=== PATIENT | male | born 1960 | race Caucasian/White ===

== ENCOUNTER → 2016-07-24 | Outpatient (REF) | payer OTHER ==
[2016-07-24 13:01] LABS: ALBUMIN 3.6 GM/DL (3.2-5.2); ALBUMIN/GLOBULIN RATIO 1.24 (1.00-1.93); ALKALINE PHOSPHATASE 79 U/L (45-117); ALT/SGPT 27 U/L (12-78); ANION GAP 8 MEQ/L (8-16); AST/SGOT 16 U/L (15-37); BILIRUBIN,TOTAL 0.3 MG/DL (0.2-1.0); BLOOD UREA NITROGEN 24 MG/DL (7-18); CALCIUM LEVEL 8.5 MG/DL (8.5-10.1); CARBON DIOXIDE LEVEL 27 MEQ/L (21-32); CHLORIDE LEVEL 104 MEQ/L (98-107); CHOLESTEROL LEVEL 225 MG/DL (<200); CREATININE FOR GFR 1.23 MG/DL (0.70-1.30); GLOMERULAR FILTRATION RATE > 60.0 (>56); GLUCOSE, FASTING 92 MG/DL (70-105); POTASSIUM SERUM 4.4 MEQ/L (3.5-5.1); SODIUM LEVEL 139 MEQ/L (136-145); TOTAL PROTEIN 6.5 GM/DL (6.4-8.2); TRIGLYCERIDES LEVEL 105 MG/DL (<150)
== END ==
LOC: M SFHCADAM 09:26
PROVIDERS: ATTEND Family Medicine
DX: Z00.00 Encounter for general adult medical examination without abnormal findings (principal); I10 Essential (primary) hypertension; E78.2 Mixed hyperlipidemia; Z12.5 Encounter for screening for malignant neoplasm of prostate

== ENCOUNTER → 2017-01-22 | Outpatient (CLI) | payer BC, OTHER ==
--- NOTE | 2017-01-22 10:16 | REP ---
Clinical: Pain. Technique: Neutral and frog lateral views of the right hip. Findings: Age-related degenerative changes include increased sclerosis to the acetabular roof with mild medial joint space narrowing. No acute fracture dislocation. No periarticular calcifications. Impression: Mild age-related degenerative changes. Signed by Eliseo Sanchez MD 01/22/2017 10:07 A
--- NOTE | 2017-01-22 10:18 | REP ---
Right shoulder: Three views. History: Pain. Findings: The right glenohumeral and acromioclavicular joints are normally aligned. There is mild osteoarthritic hypertrophy of the AC joint. Periarticular soft tissues are unremarkable. No bony erosive change is seen. Impression: Mild osteoarthritis of the AC joint. No acute bony abnormality. Signed by Dario Albert MD 01/22/2017 11:19 A
== END ==
LOC: M WUC 09:32
PROVIDERS: ATTEND Physician Assistant
DX: M19.011 Primary osteoarthritis, right shoulder (principal); M16.11 Unilateral primary osteoarthritis, right hip

== ENCOUNTER → 2017-07-29 | Outpatient (CLI) | payer BC, OTHER | LOC: M ADAMS 10:09 | DX: J44.9 Chronic obstructive pulmonary disease, unspecified (principal) | CPT/HCPCS: 71046 ==

== ENCOUNTER → 2017-07-29 | Outpatient (REF) | payer OTHER | LOC: M SFHCADAM 09:45 | DX: E78.2 Mixed hyperlipidemia (principal); Z12.5 Encounter for screening for malignant neoplasm of prostate; R06.09 Other forms of dyspnea ==

== ENCOUNTER → 2017-12-08 | Outpatient (CLI) | payer BC, OTHER | LOC: M WUC 15:42 | DX: M79.645 Pain in left finger(s) (principal) | CPT/HCPCS: 73140 ==

== ENCOUNTER → 2019-01-15 | Outpatient (CLI) | payer OTHER ==
--- NOTE | 2019-02-03 04:19 | ECWPNPC ---
PATIENT NAME: JENNA ISAAC : 1960 GENDER: MALE VISIT DATE: 01/15/2019 DISCHARGE DATE: 01/15/19 1506 VISIT LOCKED DATE TIME: PHYSICIAN: MIYA NICHOLSON MD PHYSICIAN PAGER NO: [phone] RESOURCE: MIYA NICHOLSON MD REASON FOR APPOINTMENT 1. W/C NECK-PT AT CHECK IN HISTORY OF PRESENT ILLNESS PAIN SCREENING: PATIENT HAS A COMPLAINT OF ACUTE OR CHRONIC PAIN :YES 58 YEAR OLD MALE PATIENT WITH A HISTORY OF CHRONIC NECK AND SHOULDER PAIN. THE PATIENT DESCRIBES THE PAIN BURNING, TENDER, NUMBING, AND DAILY WITH A PAIN SCORE OF 5-8/10 DEPENDING ON PHYSICAL ACTIVITY. 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 THE PATIENT SAYS HE WENT TO [facility] AFTER HIS INJURY WHERE THEY PERFORMED X-RAYS AND HE WAS LATER SEEN BY DR. MCCAULEY WHO BEGAN THE WORKER'S COMPENSATION PROCESS FOR HIS CASE. THE PATIENT SAYS HIS PAIN IS AFFECTING HIS ABILITY TO PERFORM HIS DAILY ACTIVITIES SUCH NO LONGER IS HE ABLE TO CUT FIREWOOD, EXERCISE, AND DIFFICULTY WORKING WITH COMPUTERS THAT REQUIRES FREQUENT REST BREAKS. THE PATIENT SAYS HE EXPERIENCES SOME DULL PAIN DOWN HIS RIGHT ARM. THE PATIENT STATES HIS PAIN INCREASES WITH ACTIVITIES. PATIENT DENIES UNEXPLAINABLE WEIGHT LOSS, FEVER, CHILLS, NEW CHANGES ON HIS URINARY OR BOWEL CONTROL. FALL RISK SCREENING: SCREENING :NO FALLS REPORTED IN THE LAST YEAR CURRENT MEDICATIONS TAKING LISINOPRIL 40 MG TABLET 1 TABLET ORALLY ONCE A DAY TAKING SPIRIVA RESPIMAT 2.5 MCG/ACT AEROSOL SOLUTION 2 PUFFS INHALATION ONCE A DAY TAKING PROAIR HFA 108 (90 BASE) MCG/ACT AEROSOL SOLUTION 2 PUFFS NEEDED INHALATION FOUR TIMES DAILY NEEDED TAKING ASPIR-LOW 81 MG TABLET DELAYED RELEASE 1 TABLET ORALLY ONCE A DAY TAKING CELEBREX 200 MG CAPSULE 1 CAPSULE ORALLY 1 CAP DAILY ALT WITH 2 CAPSULES DAILY MEDICATION LIST REVIEWED AND RECONCILED WITH THE PATIENT PAST MEDICAL HISTORY ASTHMA PROSTATITIS ARTHRITIS LOW BACK DDD COPD SPIROMETRY 08/11: FEV1 1.63, FEV1/FVC 59% BACK PAIN BPH 11/01 MRSA 04/01 ([facility]) BASAL CELL CARCINOMA 2007 PAIN-ASSOCIATED ELEVATION OF BP (STARTED TX 03/06 WHEN WAS HAVING SEVERE BACK PAIN) 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 SURGICAL HISTORY COLONOSCOPY--DR MICHAELS 1989' APPENDECTOMY CHILD BOWEL SURGERY CHILD COLONOSCOPY (NL) 04/06 FAMILY HISTORY FATHER: , OF COPD MOTHER: , OVARIAN CA SIBLINGS: BROTHER--PROSTATE CA 4 BROTHER(S) - HEALTHY. 2DAUGHTER(S) - HEALTHY. MOTHER- OVARIAN CANCERBROTHER- PROSTATE CANCER. SOCIAL HISTORY GENERAL: TOBACCO USE ARE YOU A:FORMER SMOKER HOW LONG HAS IT BEEN SINCE YOU LAST SMOKED?> 10 YEARS OTHERS AT HOME: NONE. HOUSING: OWNS HOME. EDUCATION LEVEL OF EDUCATION:HIGH SCHOOL DIET: NO ADDED SALT. LANGUAGE LANGUAGES SPOKEN:GREENLANDIC DOMESTIC VIOLENCE STATUS: DO YOU FEEL SAFE IN YOUR ENVIRONMENT?YES NEW PATIENT PAIN DIARY PATIENT DESCRIBES PAIN :BURNING, TENDER FROM 0-10, WHAT LEVEL IS YOUR PAIN TODAY?5 PRECIPITATING FACTORS WORK, TOO MUCH MOVEMENT ALLEVIATING FACTORS HOT PACKS IMPACT ON FUNCTION DECREASED ABILTY TO PERFORM NORMAL ADLS HAVE YOU BEEN SICK IN THE LAST WEEK (COLD, COUGH, FEVER, FLU, ETC)NO DO YOU TAKE ANY BLOOD THINNERS?YES ASA 81 MG DAILY DO YOU HAVE ANY RASHES OR OPEN SORES?NO ANY CHANGE IN BOWEL OR BLADDER CONTROL?NO ARE YOU ALLERGIC TO SHELLFISH OR IV DYE?NO ARE YOU DIABETIC?NO DO YOU HAVE A PACEMAKER OR DEFIBRILLATOR?NO HAVE YOU FALLEN IN THE LAST 6 MONTHS?NO DO YOU USE ANY TYPE OF TOBACCO (SMOKE, SMOKELESS, CHEW, ETC.)NO ARE YOU ABUSED, NEGLECTED, OR IN AN UNSAFE ENVIRONMENT?NO DO YOU HAVE THOUGHTS OF HURTING YOURSELF OR SOMEONE ELSE?NO INTENSITY SCALE REVIEWEDNUMBER RECREATIONAL DRUG USE DRUG USE?NO PATIENT DENIES ABUSE OR MISSUSED OF ANY MEDICATION DENIES PATIENT DENIES USE OF ANY ILLEGAL SUBSTANCE INCLUDING MARIJUANA OR COCAINE DENIES EXERCISE: BIKES, RESISTANCE TRAINING. LEARNING BARRIERS / SPECIAL NEEDS CHANGE FROM LAST VISIT?NO BARRIERS TO LEARNING?NO HEARING IMPAIRED?NO VISION IMPAIRED?YES READING GLASSES COGNITIVELY IMPAIRED?NO READINESS TO LEARN?YES LEARNING PREFERENCES?NO LEARNING CAPABILITIES PRESENT?YES EMOTIONAL BARRIERS?NO SPECIAL DEVICES?NO SALES ACTIVITY MANAGER NEEDED?NO PAIN CLINIC PFS, CLERGY, PUBLIC HEALTH REFERRALS PFS REFERRAL NEEDED?NO CLERGY REFERRAL NEEDED?NO PUBLIC HEALTH REFERRAL NEEDED?NO WAS THE PROVIDER NOTIFIED OF ANY PERTINENT INFO?YES HAS THE PATIENT BEEN EDUCATED REGARDING HIS/HER PLAN OF CARE?YES HAS THE PATIENT BEEN EDUCATED REGARDING PAIN, THE RISK FOR PAIN, THE IMPORTANCE OF EFFECTIVE PAIN MANAGEMENT, AND THE PAIN ASSESSMENT PROCESS?YES LATEX QUESTIONNAIRE LATEX ALLERGY : HAVE YOU EVER DEVELOPED ANY TYPE OF REACTION AFTER HANDLING LATEX PRODUCTS SUCH RUBBER GLOVES, CONDOMS, DIAPHRAGMS, BALLOONS, SOCKS, OR UNDERWEAR?NO LATEX ALLERGY : HAVE YOU EVER DEVELOPED ANY TYPE OF REACTION DURING OR AFTER DENTAL APPOINTMENT, VAGINAL/RECTAL EXAMINATION, SURGICAL PROCEDURE, OR ANY OTHER EXPOSURE?NO LATEX RISK : HAVE YOU EVER HAD ANY DIFFICULTY BREATHING OR HIVES AFTER EATING OR HANDLING ANY FRUITS, OR VEGETABLES; SUCH KIWI, BANANAS, STONE FRUITS, OR CHESTNUTSNO LATEX RISK : DO YOU HAVE A PREVIOUS PERSONAL HISTORY OF MORE THAN NINE SURGERIES, SPINA BIFIDA, OR REPEATED CATHERIZATIONS? NO LATEX RISK : ARE YOU FREQUENTLY EXPOSED TO LATEX PRODUCTS IN YOUR OCCUPATION?YES DATE ASKED : 01/15/2019 CAFFEINE CAFFEINE USE?YES HOW OFTEN AND HOW MUCH? 3 CUPS OF COFFEE PER DAY ADVANCE DIRECTIVE ADVANCE DIRECTIVE DISCUSSED WITH PATIENT:NO PT STATES NO ADVANCED DIRECTIVES AND DECLINES WRITTEN INFORMATION AT THIS TIME 01/15/19 1404 NLJ EPISCOPALIAN EPISCOPALIAN NO ISLAM BELIEFS THAT WOULD IMPACT HEALTH CARE. MARITAL STATUS: 03/2014. 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 SEXUAL HX HAD SEX IN THE LAST 12 MONTHS (VAGINAL, ORAL, OR ANAL)?YES WITHWOMEN ONLY HAVE YOU EVER HAD AN STD?NO REVIEWED, NO CHANGES. HOSPITALIZATION/MAJOR DIAGNOSTIC PROCEDURE DENIES PAST HOSPITALIZATION REVIEW OF SYSTEMS REVIEWED BY: PROVIDER: MIYA NICHOLSON MD . CONSTITUTIONAL: ANY CHANGE IN YOUR MEDICAL CONDITION? NO . CHILLS NO . FEVER NO . INFECTION: DO YOU HAVE NEW INFECTIONS? NO . DO YOU HAVE HISTORY OF MRSA? YES . MUSCULOSKELETAL: ANY NEW PATTERNS OF PAIN OR NUMBNESS? YES- NUMBNESS IN BILATERAL SHOULDERS, RADIATES DOWN RIGHT ARM . SYTEMIC LUPUS NO . GASTROENTEROLOGY: ANY NEW CHANGE IN BOWEL CONTROL? NO . BARRETTS ESOPHAGUS NO . CIRRHOSIS NO . HEPATITIS NO . LIVER FAILURE NO . ACID REFLUX NO . UNEXPLAINED WEIGHT LOSS NO . GENITOURINARY: ANY NEW CHANGE IN BLADDER CONTROL? NO . IS THERE A CHANCE YOU COULD BE ? NO . HEMATOLOGY/LYMPH: DO YOU TAKE ANY BLOOD THINNERS? (FOR EXAMPLE- COUMADIN, PLAVIX, AGGRENOX, PLATEL, PRADAXA, OR XARELTO) YES- ASA 81 MG DAILY . WHEN WAS YOUR LAST DOSE? DATE: TIME: . LOW PLATELET COUNT NO . SICKLE CELL DISEASE NO . VON WILLIEBRANDS NO . FACTOR V LEIDEN NO . THALLASEMIA NO . ANEMIA NO . EASY BRUISING NO . NEUROLOGY: HAVE YOU FALLEN IN THE PAST 12 MONTHS? NO . ANY NEW EXTREMITY NUMBNESS OR WEAKNESS? YES- BILATERAL SHOULDER NUMBNESS . HEAD INJURY NO . DEMENTIA NO . CEREBRAL PALSY NO . MULTIPLE SCLEROSIS NO . DIZZINESS NO . HEADACHE FREQUENT- STATES HE ATTRIBUTES HEADACHES TO NECK PAIN . STROKES NO . VERTIGO NO . CARDIOLOGY: DO YOU HAVE A PACEMAKER OR DEFIBRILLATOR? NO . ANGINA NO . HEART ATTACK NO . HEART SURGERY NO . CONGESTIVE HEART FAILURE/FLUID OVERLOAD NO . CHEST PAIN NO . HIGH BLOOD PRESSURE NO . IRREGULAR HEART BEAT NO . RESPIRATORY: HAVE YOU BEEN SICK IN THE PAST WEEK? NO . FEVER NO . FLU LIKE SYMPTOMS? NO . CPAP NO . BYPAP NO . ASTHMA YES . EMPHYSEMA NO . CHRONIC LUNG DISEASES YES . SHORTNESS OF BREATH ON EXERTION YES . COUGH NO . SNORING NO . INTEGUMENTARY: DO YOU HAVE ANY RASHES OR OPEN SORES? NO . ALLERGIC/IMMUNO: ARE YOU ALLERGIC TO IV DYE? NO . ANY NEW ALLERGIES? NO . PSYCHIATRIC: DO YOU HAVE THOUGHTS OF HURTING YOURSELF OR SOMEONE ELSE? NO . ARE YOU ABUSED, NEGLECTED, OR IN AN UNSAFE ENVIRONMENT? NO . ENDOCRINOLOGY: ARE YOU DIABETIC? NO . THYROID DISORDER NO . OTHER: DO YOU NEED ANY PRESCRIPTIONS? NO . IF YES, PLEASE LIST: ____ . ANY NEW PROBLEMS WITH YOUR MEDICATIONS? NO . WHEN DID YOU LAST EAT? ____ . WHEN DID YOU LAST DRINK? ____ . WHAT DID YOU LAST DRINK? ____ . NAME OF PERSON DRIVING YOU HOME? ____ . DO YOU HAVE ANY OTHER QUESTIONS OR CONCERNS NO . VITAL SIGNS WT 179.2 LBS, HT 66 IN, BMI 28.92 INDEX, BP 141/88 MM HG, HR 90 /MIN, RR 18 /MIN, TEMP 97.4 F, OXYGEN SAT % 98%, SAFE IN ENV? (Y/N) YES, NA INITIALS AW 1352, REVIEWED BY: AVA. EXAMINATION GENERAL EXAMINATION: PATIENT IS ALERT O X 3 AND COOPERATIVE. LUNGS CLEAR, TO AUSCULTATION. HEART: NO MURMURS OR GALLOPS; FACIAL CRANIAL NERVES ARE GROSSLY NORMAL. GOOD SYMMETRY OF FACIAL MUSCLE MOVEMENT. NORMAL VISUAL POZO. TENDERNESS AND PRESENCE OF BANDS OF TISSUE AND TRIGGER POINTS WITH RESTRICTION OF MOVEMENT OF THE BILATERAL NECK AND SHOULDERS. PAIN INCREASES OVER THE CERVICAL FACET JOINTS WITH EXTENSION AND LATERAL ROTATION OF THE NECK. DECREASING STRENGTH OVER THE RIGHT SIDE. ASSESSMENTS MYALGIA - M79.10 (PRIMARY) CERVICALGIA - M54.2 SPONDYLOSIS WITHOUT MYELOPATHY OR RADICULOPATHY, CERVICAL REGION - M47.812 TREATMENT MYALGIA [facility] MRI SPINE, CERVICAL WITHOUT [id number] CLINICAL NOTES: WE DISCUSSED SEVERAL ISSUES WITH MR. ISAAC'S PAIN MANAGEMENT CASE. I WOULD LIKE TO REQUEST FOR A CERVICAL MRI TO BE PERFORMED TO GAIN A BETTER UNDERSTANDING OF WHERE THE PATIENT'S PAIN IS ORIGINATING FROM IN ORDER TO MOVE FORWARD WITH ANY INVASIVE INTERVENTIONS IN THE FUTURE. DUE TO THE TRIGGER POINTS, BANDS OF TISSUE, AND RESTRICTION OF MOVEMENT, I WOULD LIKE TO MOVE FORWARD WITH A NECK TRIGGER POINT INJECTION AT THIS TIME. WE DISCUSSED THE BENEFITS, RISKS, AND ALTERNATIVES OF THE INJECTION AND THE PATIENT WOULD LIKE TO PROCEED. I AM LOOKING FOR LONG LASTING PAIN RELIEF FROM THIS INJECTION FOR THE PATIENT. THE PATIENT WILL FOLLOW UP IN SEVERAL WEEKS AFTER HIS INJECTION TO SEE HOW IT IS HELPING WITH HIS PAIN AND TO ALSO GO OVER THE MRI RESULTS. INSTRUCTIONS WERE GIVEN, QUESTIONS WERE ANSWERED, PATIENT REPORTS UNDERSTANDING AND AGREES WITH THE PLAN. I, ALIZE VELA, DOCUMENTED THE ABOVE INFORMATION ACTING A SCRIBE FOR DR. NICHOLSON. I HAVE REVIEWED THE ABOVE DOCUMENT, WRITTEN BY ALIZE BURGOS AND I VERIFY THAT IT IS ACCURATE. DEAR CRISTIANA SERRANO PA-C: THANK YOU FOR YOUR KIND REFERRAL OF JENNA ISAAC. IF YOU WANT TO DISCUSS HIS CASE WITH ME PLEASE CALL ME AT THE PAIN CENTER AT [phone]. SINCERELY, MIYA NICHOLSON MD PAIN MEDICINE . CERVICALGIA [facility] MRI SPINE, CERVICAL WITHOUT [id number] PROCEDURES PN WORKMANS' COMP OPINION IN YOUR OPINION, WAS THE INCIDENT THAT THE PATIENT DESCRIBED THE COMPETENT MEDICAL CAUSE OF THIS INJURY/ILLNESS? YES ARE THE PATIENT'S COMPLAINTS CONSISTENT WITH HIS/HER HISTORY OF THE INJURY/ILLNESS? YES IS THE PATIENT'S HISTORY OF THE INJURY/ILLNESS CONSISTENT WITH YOUR OBJECTIVE FINDING? YES WHAT IS THE PERCENTAGE OF TEMPORARY IMPAIRMENT? MODERATE TO MARKED = 66.7% IS THE PATIENT WORKING? YES DOCTOR ON SITE: MIYA MOLINA MD PREVENTIVE MEDICINE PAIN CLINIC TEACHING: PROCEDURE TEACHING TRIGGER POINT INJECTION PROCEDURE INFORMATION PRINTED AND REVIEWED WITH PATIENT 01/15/19 1502 NLJ. PROCEDURE CODES FA211 ESTABILISHED PATIENT [facility] FACILITY CHARGE [id number] CURRENT MEDS W/DOSAGES DOCUMENTED G8730 PAIN ASSESS POS TOOL F/U PLAN DOC DISPOSITION & COMMUNICATION FOLLOW UP REASON: CERVICAL MRI/TPI ELECTRONICALLY SIGNED BY MIYA NICHOLSON MD, MD ON 02/02/2019 AT 04:56 PM EST DISCLAIMER : THIS IS A VISIT SUMMARY EXTRACTED FROM THE [employer] CHART. IT IS NOT A COPY OF THE [employer] PROGRESS NOTE. BRISA
== END ==
LOC: M PAIN 13:30
PROVIDERS: ATTEND Anesthesiology
DX: M79.10 Myalgia, unspecified site (principal); M54.2 Cervicalgia; M47.812 Spondylosis without myelopathy or radiculopathy, cervical region; J44.9 Chronic obstructive pulmonary disease, unspecified; Z86.14 Personal history of Methicillin resistant Staphylococcus aureus infection; Z87.891 Personal history of nicotine dependence; Z79.82 Long term (current) use of aspirin; Z79.899 Other long term (current) drug therapy

== ENCOUNTER → 2019-02-11 | Outpatient (CLI) | payer OTHER ==
--- NOTE | 2019-02-11 19:08 | REP ---
MRI cervical spine: 02/11/2019. Indication: Neck pain. Comparison: None. Technique: Multiplanar short and long TR sequences of the cervical spine were obtained without IV Gadolinium. Findings: There is minimal retrolisthesis of C6 on C7 and C7 on T1. Endplate degenerative signal changes are present most pronounced at C5/C6 and C6/C7. Disc space narrowing and disc desiccation are present at these levels as well. Disc dessication is otherwise noted throughout the remaining cervical disc levels. The craniocervical junction is unremarkable. No abnormal cord signal is present. The vertebral artery flow voids are unremarkable. C2/C3: Unremarkable. C3/C4: Left greater than right facet arthropathy and mild diffuse disc bulge are present with mild spinal canal and neural foraminal narrowing. C4/C5: Predominantly left-sided uncovertebral and facet hypertrophy are present with moderate to severe left neural foraminal narrowing. C5/C6: Diffuse disc osteophyte and bilateral facet arthropathy are present with mild flattening of the ventral cord. Severe left and moderate to severe right neural foraminal narrowing is present. C6/C7: Diffuse disc osteophyte complex is present with severe bilateral neural foraminal narrowing and mild flattening of the ventral cord. C7/T1: Mild disc bulges present without significant spinal canal or neural foraminal narrowing. Impression: Multilevel degenerative sequelae of the cervical spine as described without severe spinal canal narrowing/cord compression. Please correlate with radicular level. Electronically Signed by Sergio Rush DO 02/11/2019 04:08 P
== END ==
LOC: M RAD 12:59
PROVIDERS: ATTEND Anesthesiology
DX: M25.78 Osteophyte, vertebrae (principal); M50.321 Other cervical disc degeneration at C4-C5 level; M50.322 Other cervical disc degeneration at C5-C6 level; M50.323 Other cervical disc degeneration at C6-C7 level; M50.23 Other cervical disc displacement, cervicothoracic region; M79.10 Myalgia, unspecified site

== ENCOUNTER → 2019-03-18 | Outpatient (CLI) | payer OTHER ==
[~2019-03-18] MED LIST: BUPIVACAINE HCL 0.25% 30 ML VIAL As Ordered ONE; TRIAMCINOLONE ACETONIDE SUSP 40 MG/ML VIAL (J3301) As Ordered ONE; diazePAM 5 MG TAB As Ordered ONE
--- NOTE | 2019-04-02 01:37 | ECWPNPC ---
PATIENT NAME: JENNA ISAAC : 1960 GENDER: MALE VISIT DATE: 03/18/2019 DISCHARGE DATE: 03/18/19 1725 VISIT LOCKED DATE TIME: PHYSICIAN: MIYA NICHOLSON MD PHYSICIAN PAGER NO: [phone] RESOURCE: MIYA NICHOLSON MD REASON FOR APPOINTMENT 1. BILATERAL NECK AND RIGHT SHOULDER TPI HISTORY OF PRESENT ILLNESS HISTORY OF PRESENT ILLNESS: PAIN THE PATIENT DESCRIBES THE PAIN... FALL RISK SCREENING: SCREENING :NO FALLS REPORTED IN THE LAST YEAR CURRENT MEDICATIONS TAKING LISINOPRIL 40 MG TABLET 1 TABLET ORALLY ONCE A DAY, NOTES: 03/18/2019 08 TAKING SPIRIVA RESPIMAT 2.5 MCG/ACT AEROSOL SOLUTION 2 PUFFS INHALATION ONCE A DAY, NOTES: 03/18/2019799 TAKING PROAIR HFA 108 (90 BASE) MCG/ACT AEROSOL SOLUTION 2 PUFFS NEEDED INHALATION FOUR TIMES DAILY NEEDED, NOTES: PRN TAKING ASPIR-LOW 81 MG TABLET DELAYED RELEASE 1 TABLET ORALLY ONCE A DAY, NOTES: 03/18/2019799 TAKING CELEBREX 200 MG CAPSULE 1 CAPSULE ORALLY 1 CAP DAILY ALT WITH 2 CAPSULES DAILY, NOTES: 03/18/2019799 MEDICATION LIST REVIEWED AND RECONCILED WITH THE PATIENT PAST MEDICAL HISTORY ASTHMA PROSTATITIS ARTHRITIS LOW BACK DDD COPD SPIROMETRY 08/11: FEV1 1.63, FEV1/FVC 59% BACK PAIN BPH 11/01 MRSA 04/01 ([facility]) BASAL CELL CARCINOMA 2007 PAIN-ASSOCIATED ELEVATION OF BP (STARTED TX 03/06 WHEN WAS HAVING SEVERE BACK PAIN) 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 SURGICAL HISTORY COLONOSCOPY--DR MICHAELS APPENDECTOMY CHILD BOWEL SURGERY CHILD COLONOSCOPY (NL) 04/06 FAMILY HISTORY FATHER: , OF COPD MOTHER: , OVARIAN CA SIBLINGS: BROTHER--PROSTATE CA 4 BROTHER(S) - HEALTHY. 2DAUGHTER(S) - HEALTHY. MOTHER- OVARIAN CANCERBROTHER- PROSTATE CANCER. SOCIAL HISTORY GENERAL: TOBACCO USE ARE YOU A:FORMER SMOKER HOW LONG HAS IT BEEN SINCE YOU LAST SMOKED?> 10 YEARS OTHERS AT HOME: NONE. HOUSING: OWNS HOME. EDUCATION LEVEL OF EDUCATION:HIGH SCHOOL DIET: NO ADDED SALT. LANGUAGE LANGUAGES SPOKEN:GEORGIAN DOMESTIC VIOLENCE STATUS: DO YOU FEEL SAFE IN YOUR ENVIRONMENT?YES NEW PATIENT PAIN DIARY PATIENT DESCRIBES PAIN :BURNING, TENDER FROM 0-10, WHAT LEVEL IS YOUR PAIN TODAY?5 PRECIPITATING FACTORS WORK, TOO MUCH MOVEMENT ALLEVIATING FACTORS HOT PACKS IMPACT ON FUNCTION DECREASED ABILTY TO PERFORM NORMAL ADLS HAVE YOU BEEN SICK IN THE LAST WEEK (COLD, COUGH, FEVER, FLU, ETC)NO DO YOU TAKE ANY BLOOD THINNERS?YES ASA 81 MG DAILY DO YOU HAVE ANY RASHES OR OPEN SORES?NO ANY CHANGE IN BOWEL OR BLADDER CONTROL?NO ARE YOU ALLERGIC TO SHELLFISH OR IV DYE?NO ARE YOU DIABETIC?NO DO YOU HAVE A PACEMAKER OR DEFIBRILLATOR?NO HAVE YOU FALLEN IN THE LAST 6 MONTHS?NO DO YOU USE ANY TYPE OF TOBACCO (SMOKE, SMOKELESS, CHEW, ETC.)NO ARE YOU ABUSED, NEGLECTED, OR IN AN UNSAFE ENVIRONMENT?NO DO YOU HAVE THOUGHTS OF HURTING YOURSELF OR SOMEONE ELSE?NO INTENSITY SCALE REVIEWEDNUMBER RECREATIONAL DRUG USE DRUG USE?NO PATIENT DENIES ABUSE OR MISSUSED OF ANY MEDICATION DENIES PATIENT DENIES USE OF ANY ILLEGAL SUBSTANCE INCLUDING MARIJUANA OR COCAINE DENIES EXERCISE: BIKES, RESISTANCE TRAINING. LEARNING BARRIERS / SPECIAL NEEDS CHANGE FROM LAST VISIT?NO BARRIERS TO LEARNING?NO HEARING IMPAIRED?NO VISION IMPAIRED?YES READING GLASSES COGNITIVELY IMPAIRED?NO READINESS TO LEARN?YES LEARNING PREFERENCES?NO LEARNING CAPABILITIES PRESENT?YES EMOTIONAL BARRIERS?NO SPECIAL DEVICES?NO UPSET OPERATOR NEEDED?NO PAIN CLINIC PFS, CLERGY, PUBLIC HEALTH REFERRALS PFS REFERRAL NEEDED?NO CLERGY REFERRAL NEEDED?NO PUBLIC HEALTH REFERRAL NEEDED?NO WAS THE PROVIDER NOTIFIED OF ANY PERTINENT INFO?YES HAS THE PATIENT BEEN EDUCATED REGARDING HIS/HER PLAN OF CARE?YES HAS THE PATIENT BEEN EDUCATED REGARDING PAIN, THE RISK FOR PAIN, THE IMPORTANCE OF EFFECTIVE PAIN MANAGEMENT, AND THE PAIN ASSESSMENT PROCESS?YES LATEX QUESTIONNAIRE LATEX ALLERGY : HAVE YOU EVER DEVELOPED ANY TYPE OF REACTION AFTER HANDLING LATEX PRODUCTS SUCH RUBBER GLOVES, CONDOMS, DIAPHRAGMS, BALLOONS, SOCKS, OR UNDERWEAR?NO LATEX ALLERGY : HAVE YOU EVER DEVELOPED ANY TYPE OF REACTION DURING OR AFTER DENTAL APPOINTMENT, VAGINAL/RECTAL EXAMINATION, SURGICAL PROCEDURE, OR ANY OTHER EXPOSURE?NO DATE ASKED : 01/15/2019 LATEX RISK : HAVE YOU EVER HAD ANY DIFFICULTY BREATHING OR HIVES AFTER EATING OR HANDLING ANY FRUITS, OR VEGETABLES; SUCH KIWI, BANANAS, STONE FRUITS, OR CHESTNUTSNO LATEX RISK : DO YOU HAVE A PREVIOUS PERSONAL HISTORY OF MORE THAN NINE SURGERIES, SPINA BIFIDA, OR REPEATED CATHERIZATIONS? NO LATEX RISK : ARE YOU FREQUENTLY EXPOSED TO LATEX PRODUCTS IN YOUR OCCUPATION?YES CAFFEINE CAFFEINE USE?YES HOW OFTEN AND HOW MUCH? 3 CUPS OF COFFEE PER DAY ADVANCE DIRECTIVE ADVANCE DIRECTIVE DISCUSSED WITH PATIENT:NO PT STATES NO ADVANCED DIRECTIVES AND DECLINES WRITTEN INFORMATION AT THIS TIME 01/15/19 1404 NLJ RESTORATIONIST RESTORATIONIST NO SYNAGOGUE BELIEFS THAT WOULD IMPACT HEALTH CARE. MARITAL STATUS: 03/2014. 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 SEXUAL HX HAD SEX IN THE LAST 12 MONTHS (VAGINAL, ORAL, OR ANAL)?YES WITHWOMEN ONLY HAVE YOU EVER HAD AN STD?NO REVIEWED, NO CHANGESREVIEWED WITH PATIENT 03/18/2019 1511 NLJ. HOSPITALIZATION/MAJOR DIAGNOSTIC PROCEDURE NO HOSPITALIZATION HISTORY. REVIEW OF SYSTEMS REVIEWED BY: PROVIDER: . CONSTITUTIONAL: ANY CHANGE IN YOUR MEDICAL CONDITION? NO . CHILLS NO . FEVER NO . INFECTION: DO YOU HAVE NEW INFECTIONS? NO . DO YOU HAVE HISTORY OF MRSA? YES . MUSCULOSKELETAL: ANY NEW PATTERNS OF PAIN OR NUMBNESS? NO . GASTROENTEROLOGY: ANY NEW CHANGE IN BOWEL CONTROL? NO . GENITOURINARY: ANY NEW CHANGE IN BLADDER CONTROL? NO . IS THERE A CHANCE YOU COULD BE ? NO . HEMATOLOGY/LYMPH: DO YOU TAKE ANY BLOOD THINNERS? (FOR EXAMPLE- COUMADIN, PLAVIX, AGGRENOX, PLATEL, PRADAXA, OR XARELTO) YES- ASA- 81 MG DAILY . WHEN WAS YOUR LAST DOSE? DATE:03/18/2019 TIME: 0800 . NEUROLOGY: HAVE YOU FALLEN IN THE PAST 12 MONTHS? NO . ANY NEW EXTREMITY NUMBNESS OR WEAKNESS? NO . CARDIOLOGY: DO YOU HAVE A PACEMAKER OR DEFIBRILLATOR? NO . RESPIRATORY: HAVE YOU BEEN SICK IN THE PAST WEEK? NO . FEVER NO . FLU LIKE SYMPTOMS? NO . COUGH NO . INTEGUMENTARY: DO YOU HAVE ANY RASHES OR OPEN SORES? NO . ALLERGIC/IMMUNO: ARE YOU ALLERGIC TO IV DYE? NO . ANY NEW ALLERGIES? NO . PSYCHIATRIC: DO YOU HAVE THOUGHTS OF HURTING YOURSELF OR SOMEONE ELSE? NO . ARE YOU ABUSED, NEGLECTED, OR IN AN UNSAFE ENVIRONMENT? NO . ENDOCRINOLOGY: ARE YOU DIABETIC? NO . OTHER: DO YOU NEED ANY PRESCRIPTIONS? NO . IF YES, PLEASE LIST: ____ . ANY NEW PROBLEMS WITH YOUR MEDICATIONS? NO . WHEN DID YOU LAST EAT? 03/18/2019 0800 . WHEN DID YOU LAST DRINK? 03/18/2019 1030 AM . WHAT DID YOU LAST DRINK? WATER . NAME OF PERSON DRIVING YOU HOME? ____DAUGHTER . DO YOU HAVE ANY OTHER QUESTIONS OR CONCERNS NO . VITAL SIGNS WT 182 LBS, HT 66 IN, BMI 29.37 INDEX, BP 134/87 MM HG, HR 74 /MIN, RR 18 /MIN, TEMP 97.0 F, OXYGEN SAT % 97%, SAFE IN ENV? (Y/N) YES, NA INITIALS AW 1422, REVIEWED BY: NLJ. ASSESSMENTS MYALGIA, OTHER SITE - M79.18 (PRIMARY) PROCEDURES PN TRIGGER POINT INJECTION WITH STEROIDS PRE PROCEDURE DIAGNOSIS 1. MYALGIA 2. PAIN AT BILATERAL NECK AREA AND RIGHT SHOULDER AREA. POST PROCEDURE DIAGNOSIS 1. MYALGIA 2. PAIN AT BILATERAL NECK AREA AND RIGHT SHOULDER AREA. PROCEDURE TRIGGER POINT INJECTION AT RIGHT AND LEFT NECK AREA AND RIGHT SHOULDER AREA. SURGEON DR. MIYA NICHOLSON HEALTH INSURANCE AGENT NONE ANESTHESIA LOCAL PRE PROCEDURE NOTE THE PATIENT HAS A HISTORY OF CHRONIC PAIN AT THE RIGHT AND LEFT NECK AREA AND RIGHT SHOULDER AREA. I EVALUATED THE PATIENT AND REVIEWED THE CHART. THERE IS EVIDENCE OF BANDS OF TISSUE WITH RESTRICTION OF MOVEMENT AND PRESENCE OF TRIGGER POINT AT THE AFFECTED AREA. I WENT OVER THE RISKS, ALTERNATIVES, AND BENEFITS ASSOCIATED WITH THIS PROCEDURE. THE PATIENT WOULD LIKE TO PROCEED AND GIVES CONSENT TO PERFORM THE PROCEDURE. THE PATIENT DENIES UNEXPLAINABLE WEIGHT LOSS, FEVER, CHILLS, OR NEW CHANGES IN URINARY OR BOWEL CONTROL DESCRIPTION OF PROCEDURE THE PATIENT WAS BROUGHT TO THE PROCEDURE ROOM AND PLACED IN THE SITTING POSITION. THE AREA WAS CLEANED WITH ALCOHOL. THE PROCEDURE WAS DONE USING ASEPTIC STERILE TECHNIQUE. I CHECKED LATERALITY AND THE LEVEL WHERE THE PROCEDURE WAS GOING TO BE PERFORMED WITH THE PATIENT AND THE SUPPORTING STAFF AT THE MOMENT OF THE TIME OUT IN THE PROCEDURE ROOM. USING A 25-GAUGE NEEDLE, TRIGGER POINTS WERE INJECTED AT THE RIGHT AND LEFT NECK AREA AND RIGHT SHOULDER AREA WITH A TOTAL OF 40 ML OF BUPIVACAINE 0.25% AND KENALOG 40 MG. THERE WAS NO EVIDENCE OF BLOOD, PARESTHESIA OR CEREBROSPINAL FLUID DURING THE PROCEDURE. THE PATIENT WAS SENT TO THE RECOVERY ROOM. THE PATIENT WAS MOVING THE EXTREMITIES AND DOING WELL. THERE WAS NO COMPLICATION DURING THE PROCEDURE POST PROCEDURE NOTE THE PATIENT WILL BE SEEN IN A FOLLOW UP IN THE NEXT FEW WEEKS. I AM LOOKING FOR LONG LASTING PAIN RELIEF WITH THIS INJECTION. INSTRUCTIONS WERE GIVEN, QUESTIONS WERE ANSWERED, AND THE PATIENT EXPRESSED UNDERSTANDING AND AGREES WITH THE PLAN. I, ALIZE VELA, DOCUMENTED THE ABOVE INFORMATION ACTING A SCRIBE FOR DR. NICHOLSON. I HAVE REVIEWED THE ABOVE DOCUMENT, WRITTEN BY ALIZE VELA SCRIBE AND I VERIFY THAT IT IS ACCURATE. PROCEDURE CODES 07353 INJECT TRIGGER POINTS 3/> DISPOSITION & COMMUNICATION FOLLOW UP 3 WEEKS ELECTRONICALLY SIGNED BY MIYA NICHOLSON MD, MD ON 04/01/2019 AT 12:10 PM EST DISCLAIMER : THIS IS A VISIT SUMMARY EXTRACTED FROM THE [employer] CHART. IT IS NOT A COPY OF THE [employer] PROGRESS NOTE. BRISA
== END ==
LOC: M PAIN 14:15
PROVIDERS: ATTEND Anesthesiology
DX: M79.18 Myalgia, other site (principal); J45.909 Unspecified asthma, uncomplicated; J44.9 Chronic obstructive pulmonary disease, unspecified; Z86.14 Personal history of Methicillin resistant Staphylococcus aureus infection; Z87.891 Personal history of nicotine dependence; Z79.82 Long term (current) use of aspirin; Z79.899 Other long term (current) drug therapy
CPT/HCPCS: 20553; J3301

== ENCOUNTER → 2019-05-06 | Outpatient (CLI) | payer OTHER ==
--- NOTE | 2019-05-08 01:14 | ECWPNPC ---
PATIENT NAME: JENNA ISAAC : 1960 GENDER: MALE VISIT DATE: 05/06/2019 DISCHARGE DATE: 05/06/19 1225 VISIT LOCKED DATE TIME: PHYSICIAN: DANIEL ELY PHYSICIAN PAGER NO: [phone] RESOURCE: DANIEL ELY REASON FOR APPOINTMENT 1. W/C NECK PAIN HISTORY OF PRESENT ILLNESS HISTORY OF PRESENT ILLNESS: 59-YEAR-OLD GENTLEMAN HERE FOR POST PROCEDURE FOLLOW-UP. HAD BILATERAL NECK AND RIGHT SHOULDER TRIGGER POINT INJECTION ON 03/18/2019. REPORTS SIGNIFICANT REDUCTION IN PAIN FOR SEVERAL WEEKS AND RECENTLY PAIN HAS BEGUN TO RESURFACE. PAIN IS AGGRAVATED WITH USE OF RIGHT ARM. PAIN THE PATIENT DESCRIBES THE PAIN... 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 HE WAS WALKING THROUGH AN ICY PARKING LOT WHEN HE SLIPPED ON THE ICE AND FELL ONTO HIS RIGHT SIDE, INJURING HIS RIGHT HIP, RIGHT SHOULDER, RIGHT ARM, AND NECK. WHEN THE PAIN DIDN'T GO AWAY AFTER A WEEK, HE PRESENTED TO [facility] ON 01/22/2017, WHERE HE WAS DIAGNOSED WITH CONTUSIONS AND ADVISED TO USE CONSERVATIVE TREATMENT, INCLUDING REST, ICE OR HEAT, NAPROXEN OR TYLENOL, AND LIGHT STRETCHING. THE PAIN DIDN'T GET BETTER, SO HE SAW DR. MCCAULEY, WHO IS A NEUROSURGEON WHO HAD TREATED BRUCE FOR CARPAL TUNNEL SYNDROME IN THE PAST, AND DR. MCCAULEY SUGGESTED NERVE BLOCK INJECTIONS, AND PHYSICAL THERAPY. BRUCE WAS ALSO SEEING A NEUROLOGIST, WHO AGREED. HOWEVER, IT DOESN'T LOOK THOUGH HE HAD ANY NERVE CONDUCTION STUDIES OR A CT OR AN MRI OF THE NECK BECAUSE REPORTEDLY DR. MCCAULEY WAS NEVER ABLE TO GET WORKER'S COMPENSATION APPROVAL FOR THOSE. BRUCE LAST SAW DR. MCCAULEY IN 02/2017, AND THEN DR. MCCAULEY MOVED TO [place]. BRUCE REPORTED THAT HE WAS STILL WORKING, BUT HE STILL SUFFERED MANY SYMPTOMS, INCLUDING OCCIPITAL HEADACHES, OCCASIONAL BLURRED VISION WITH THE HEADACHES, PAIN IN HIS NECK AT THE MIDLINE THAT RADIATES OUT TO HIS SCAPULAE BILATERALLY, NUMBNESS IN HIS POSTERIOR SHOULDERS, OCCASIONAL PAIN IN HIS RIGHT HIP, MOSTLY WITH BENDING FORWARD, OCCASIONAL PAIN IN HIS RIGHT ARM FROM HIS SHOULDER TO HIS ELBOW, AND LOSS OF DEXTERITY IN HIS RIGHT FIRST THROUGH THIRD FINGERS. HE TAKES ASPIRIN 325 MG ONCE OR TWICE A DAY IF HE HAS A HEADACHE, AND HE TAKES CELEBREX DAILY FOR HIS LOW BACK, WHICH IS NOT PART OF HIS WORKER'S COMPENSATION CLAIM. HE SEES AN EYE DOCTOR REGULARLY AND THEY HAVE FOUND NO VISUAL PROBLEMS OTHER THAN THE BLURRED VISION WITH THE HEADACHES. ABOVE, HE HAS NOT HAD AN MRI, HE HAD NOT HAD PHYSICAL THERAPY, AND HE HAD NOT BEEN REFERRED TO A PAIN CENTER. I INITIATED THE REFERRAL TO PT AND THE PAIN CENTER, AND HE HAS NOW BEEN SEEN BY BOTH. TODAY'S VISIT: BRUCE HAS NOW COMPLETED PHYSICAL THERAPY AND IS SEEING DR. NICHOLSON AT THE PAIN CENTER. HE HAD OCCIPITAL SHOTS, WHICH HELPED, AND HE IS SCHEDULED FOR MORE. THE FIRST SET OF SHOTS FOCUS MAINLY ON THE RIGHT, AND THE NEXT SET WILL TREAT THE PAIN IN THE LEFT NECK WELL. BRUCE TELLS ME THAT THE PHYSICAL THERAPY WAS ALSO HELPFUL. HE CONTINUES TO DO HIS HOME EXERCISES, AND DR. NICHOLSON HAS RECOMMENDED THAT HE CONTINUE TO APPLY HEAT TO THE NECK AND HIP. HIS RIGHT HIP STILL HURTS, MOSTLY WHEN HE BENDS FORWARD AND PICKS THINGS UP, WALKS UP HILL, OR WALKS ON UNEVEN GROUND, BUT HE FEELS THAT HE CAN CONTROL THAT RIGHT NOW WITH CAREFUL POSITIONING AND HEAT. HIS RIGHT UPPER ARM ALSO STILL HURTS, MOSTLY WITH RESISTED ABDUCTION WITH A FLEXED ELBOW; CELEBREX HELPS WITH THAT. CURRENT MEDICATIONS TAKING LISINOPRIL 40 MG TABLET 1 TABLET ORALLY ONCE A DAY TAKING SPIRIVA RESPIMAT 2.5 MCG/ACT AEROSOL SOLUTION 2 PUFFS INHALATION ONCE A DAY TAKING PROAIR HFA 108 (90 BASE) MCG/ACT AEROSOL SOLUTION 2 PUFFS NEEDED INHALATION FOUR TIMES DAILY NEEDED TAKING ASPIR-LOW 81 MG TABLET DELAYED RELEASE 1 TABLET ORALLY ONCE A DAY TAKING CELEBREX 200 MG CAPSULE 1 CAPSULE ORALLY 1 CAP DAILY ALT WITH 2 CAPSULES DAILY MEDICATION LIST REVIEWED AND RECONCILED WITH THE PATIENT PAST MEDICAL HISTORY ASTHMA PROSTATITIS ARTHRITIS LOW BACK DDD COPD SPIROMETRY 08/11: FEV1 1.63, FEV1/FVC 59% BACK PAIN BPH 11/01 MRSA 04/01 ([facility] BASAL CELL CARCINOMA 2007 PAIN-ASSOCIATED ELEVATION OF BP (STARTED TX 03/06 WHEN WAS HAVING SEVERE BACK PAIN) 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 SURGICAL HISTORY COLONOSCOPY--DR MICHAELS 1989' APPENDECTOMY CHILD BOWEL SURGERY CHILD COLONOSCOPY (NL) 04/06 FAMILY HISTORY FATHER: , OF COPD MOTHER: , OVARIAN CA SIBLINGS: BROTHER--PROSTATE CA 4 BROTHER(S) - HEALTHY. 2DAUGHTER(S) - HEALTHY. MOTHER- OVARIAN CANCERBROTHER- PROSTATE CANCER. SOCIAL HISTORY GENERAL: TOBACCO USE ARE YOU A:FORMER SMOKER HOW LONG HAS IT BEEN SINCE YOU LAST SMOKED?> 10 YEARS OTHERS AT HOME: NONE. HOUSING: OWNS HOME. EDUCATION LEVEL OF EDUCATION:HIGH SCHOOL DIET: NO ADDED SALT. LANGUAGE LANGUAGES SPOKEN:CITIZEN OF [place] DOMESTIC VIOLENCE STATUS: DO YOU FEEL SAFE IN YOUR ENVIRONMENT?YES NEW PATIENT PAIN DIARY PATIENT DESCRIBES PAIN :BURNING, TENDER FROM 0-10, WHAT LEVEL IS YOUR PAIN TODAY?5 PRECIPITATING FACTORS WORK, TOO MUCH MOVEMENT ALLEVIATING FACTORS HOT PACKS IMPACT ON FUNCTION DECREASED ABILTY TO PERFORM NORMAL ADLS HAVE YOU BEEN SICK IN THE LAST WEEK (COLD, COUGH, FEVER, FLU, ETC)NO DO YOU TAKE ANY BLOOD THINNERS?YES ASA 81 MG DAILY DO YOU HAVE ANY RASHES OR OPEN SORES?NO ANY CHANGE IN BOWEL OR BLADDER CONTROL?NO ARE YOU ALLERGIC TO SHELLFISH OR IV DYE?NO ARE YOU DIABETIC?NO DO YOU HAVE A PACEMAKER OR DEFIBRILLATOR?NO HAVE YOU FALLEN IN THE LAST 6 MONTHS?NO DO YOU USE ANY TYPE OF TOBACCO (SMOKE, SMOKELESS, CHEW, ETC.)NO ARE YOU ABUSED, NEGLECTED, OR IN AN UNSAFE ENVIRONMENT?NO DO YOU HAVE THOUGHTS OF HURTING YOURSELF OR SOMEONE ELSE?NO INTENSITY SCALE REVIEWEDNUMBER RECREATIONAL DRUG USE DRUG USE?NO PATIENT DENIES ABUSE OR MISSUSED OF ANY MEDICATION DENIES PATIENT DENIES USE OF ANY ILLEGAL SUBSTANCE INCLUDING MARIJUANA OR COCAINE DENIES EXERCISE: BIKES, RESISTANCE TRAINING. LEARNING BARRIERS / SPECIAL NEEDS CHANGE FROM LAST VISIT?NO BARRIERS TO LEARNING?NO HEARING IMPAIRED?NO VISION IMPAIRED?YES READING GLASSES COGNITIVELY IMPAIRED?NO READINESS TO LEARN?YES LEARNING PREFERENCES?NO LEARNING CAPABILITIES PRESENT?YES EMOTIONAL BARRIERS?NO SPECIAL DEVICES?NO ENTRY LEVEL FINANCIAL ANALYST NEEDED?NO PAIN CLINIC PFS, CLERGY, PUBLIC HEALTH REFERRALS PFS REFERRAL NEEDED?NO CLERGY REFERRAL NEEDED?NO PUBLIC HEALTH REFERRAL NEEDED?NO WAS THE PROVIDER NOTIFIED OF ANY PERTINENT INFO?YES HAS THE PATIENT BEEN EDUCATED REGARDING HIS/HER PLAN OF CARE?YES HAS THE PATIENT BEEN EDUCATED REGARDING PAIN, THE RISK FOR PAIN, THE IMPORTANCE OF EFFECTIVE PAIN MANAGEMENT, AND THE PAIN ASSESSMENT PROCESS?YES LATEX QUESTIONNAIRE LATEX ALLERGY : HAVE YOU EVER DEVELOPED ANY TYPE OF REACTION AFTER HANDLING LATEX PRODUCTS SUCH RUBBER GLOVES, CONDOMS, DIAPHRAGMS, BALLOONS, SOCKS, OR UNDERWEAR?NO LATEX ALLERGY : HAVE YOU EVER DEVELOPED ANY TYPE OF REACTION DURING OR AFTER DENTAL APPOINTMENT, VAGINAL/RECTAL EXAMINATION, SURGICAL PROCEDURE, OR ANY OTHER EXPOSURE?NO LATEX RISK : HAVE YOU EVER HAD ANY DIFFICULTY BREATHING OR HIVES AFTER EATING OR HANDLING ANY FRUITS, OR VEGETABLES; SUCH KIWI, BANANAS, STONE FRUITS, OR CHESTNUTSNO LATEX RISK : DO YOU HAVE A PREVIOUS PERSONAL HISTORY OF MORE THAN NINE SURGERIES, SPINA BIFIDA, OR REPEATED CATHERIZATIONS? NO LATEX RISK : ARE YOU FREQUENTLY EXPOSED TO LATEX PRODUCTS IN YOUR OCCUPATION?YES DATE ASKED : 01/15/2019 CAFFEINE CAFFEINE USE?YES HOW OFTEN AND HOW MUCH? 3 CUPS OF COFFEE PER DAY ADVANCE DIRECTIVE ADVANCE DIRECTIVE DISCUSSED WITH PATIENT:YES 05/06/2019 PT STATES NO ADVANCED DIRECTIVES AND DECLINES WRITTEN INFORMATION AT THIS TIME. JS JAIN JAIN NO HINDUISM BELIEFS THAT WOULD IMPACT HEALTH CARE. MARITAL STATUS: 03/2014. 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 SEXUAL HX HAD SEX IN THE LAST 12 MONTHS (VAGINAL, ORAL, OR ANAL)?YES WITHWOMEN ONLY HAVE YOU EVER HAD AN STD?NO HOSPITALIZATION/MAJOR DIAGNOSTIC PROCEDURE SURGERY RELATED REVIEW OF SYSTEMS REVIEWED BY: PROVIDER: DANIEL WARREN . CONSTITUTIONAL: ANY CHANGE IN YOUR MEDICAL CONDITION? NO . CHILLS NO . FEVER NO . INFECTION: DO YOU HAVE NEW INFECTIONS? NO . DO YOU HAVE HISTORY OF MRSA? NO . MUSCULOSKELETAL: ANY NEW PATTERNS OF PAIN OR NUMBNESS? YES, STATES PAIN JUST GRADUALLY INCREASING SINCE AFTER INJECTION BUT STILL IMPROVED OVER ALL . GASTROENTEROLOGY: ANY NEW CHANGE IN BOWEL CONTROL? NO . GENITOURINARY: ANY NEW CHANGE IN BLADDER CONTROL? NO . IS THERE A CHANCE YOU COULD BE ? NO . HEMATOLOGY/LYMPH: DO YOU TAKE ANY BLOOD THINNERS? (FOR EXAMPLE- COUMADIN, PLAVIX, AGGRENOX, PLATEL, PRADAXA, OR XARELTO) NO . WHEN WAS YOUR LAST DOSE? DATE: TIME: . NEUROLOGY: HAVE YOU FALLEN IN THE PAST 12 MONTHS? NO . ANY NEW EXTREMITY NUMBNESS OR WEAKNESS? NO . CARDIOLOGY: DO YOU HAVE A PACEMAKER OR DEFIBRILLATOR? NO . RESPIRATORY: HAVE YOU BEEN SICK IN THE PAST WEEK? NO . FEVER NO . FLU LIKE SYMPTOMS? NO . COUGH NO . INTEGUMENTARY: DO YOU HAVE ANY RASHES OR OPEN SORES? NO . ALLERGIC/IMMUNO: ARE YOU ALLERGIC TO IV DYE? NO . ANY NEW ALLERGIES? NO . PSYCHIATRIC: DO YOU HAVE THOUGHTS OF HURTING YOURSELF OR SOMEONE ELSE? NO . ARE YOU ABUSED, NEGLECTED, OR IN AN UNSAFE ENVIRONMENT? NO . ENDOCRINOLOGY: ARE YOU DIABETIC? NO . OTHER: DO YOU NEED ANY PRESCRIPTIONS? NO . IF YES, PLEASE LIST: ____ . ANY NEW PROBLEMS WITH YOUR MEDICATIONS? NO . WHEN DID YOU LAST EAT? ____ . WHEN DID YOU LAST DRINK? ____ . WHAT DID YOU LAST DRINK? ____ . NAME OF PERSON DRIVING YOU HOME? ____ . DO YOU HAVE ANY OTHER QUESTIONS OR CONCERNS NO . VITAL SIGNS WT 183.8 LBS, HT 66 IN, BMI 29.66 INDEX, BP 138/79 MM HG, HR 84 /MIN, RR 18 /MIN, TEMP 97.4 F, OXYGEN SAT % 94%, SAFE IN ENV? (Y/N) YES, NA INITIALS AW 1121, REVIEWED BY: SABRINA. EXAMINATION GENERAL EXAMINATION: GENERAL AWAKE,ALERT ,PLEAASANT . PSYCH AFFECT NORMAL . LUNGS: LUNG POZO ARE CLEAR TO AUSCULTATION BILATERALLY. GOOD MOVEMENT OF AIR . HEART: S1, S2 IN A REGULAR RATE AND RHYTHM. NO SIGNIFICANT MURMURS, RUBS OR GALLOPS NOTED . CERVICAL: TRIGGER POINTS: CERVICAL AND TRAPEZIUS R>L..PAIN IS AGGREVATED WITH ROJM NECK. ASSESSMENTS MYALGIA, OTHER SITE - M79.18 (PRIMARY) TREATMENT MYALGIA, OTHER SITE NOTES: TPI BILAT NECK,RIGHT SHOULDER W/C REQUESTPT 2XWK X6WK MYOFASCIAL RELEASE-W/C. PROCEDURES PN WORKMANS' COMP OPINION IN YOUR OPINION, WAS THE INCIDENT THAT THE PATIENT DESCRIBED THE COMPETENT MEDICAL CAUSE OF THIS INJURY/ILLNESS? YES ARE THE PATIENT'S COMPLAINTS CONSISTENT WITH HIS/HER HISTORY OF THE INJURY/ILLNESS? YES IS THE PATIENT'S HISTORY OF THE INJURY/ILLNESS CONSISTENT WITH YOUR OBJECTIVE FINDING? YES WHAT IS THE PERCENTAGE OF TEMPORARY IMPAIRMENT? MODERATE TO MARKED = 66.7% IS THE PATIENT WORKING? YES DOCTOR ON SITE: MIYA MOLINA MD PREVENTIVE MEDICINE PAIN CLINIC TEACHING: PROCEDURE TEACHING REVIEWED INFORMATION ON TRIGGER POINT INJECTION PROCEDURE WITH PATIENT. ALSO REVIEWED PRE-PROCEDURE INSTRUCTIONS. JORDANN VERBALIZED AN UNDERSTANDING. ARELI BLACK 05/06/2019 1:04:49 PM > . PROCEDURE CODES FA211 ESTABILISHED PATIENT [facility] CHARGE DISPOSITION & COMMUNICATION FOLLOW UP POST/PT F/U (REASON: TPI BILAT NECK,RIGHT SHOULDER W/C REQUEST) ELECTRONICALLY SIGNED BY BRIANA TRAN ON 05/07/2019 AT 02:06 PM EDT DISCLAIMER : THIS IS A VISIT SUMMARY EXTRACTED FROM THE [employer] CHART. IT IS NOT A COPY OF THE [email or web address] PROGRESS NOTE. BRISA
== END ==
LOC: M PAIN 10:30
PROVIDERS: ATTEND Nurse Practitioner Family
DX: M79.18 Myalgia, other site (principal); J44.9 Chronic obstructive pulmonary disease, unspecified; Z86.14 Personal history of Methicillin resistant Staphylococcus aureus infection; Z87.891 Personal history of nicotine dependence; Z79.82 Long term (current) use of aspirin; Z79.899 Other long term (current) drug therapy

== ENCOUNTER → 2019-06-25 | Outpatient (CLI) | payer OTHER | LOC: M LABSMTC 09:52 | PROVIDERS: ATTEND Anesthesiology | DX: Z11.59 Encounter for screening for other viral diseases (principal) ==

== ENCOUNTER → 2019-06-28 | Outpatient (CLI) | payer OTHER ==
[~2019-06-28] MED LIST changes: +BUPIVACAINE HCL 0.25% 10ML VIAL As Ordered ONE; -BUPIVACAINE HCL 0.25% 30 ML VIAL As Ordered ONE; +BUPIVACAINE HCL 0.25% 30ML VIAL As Ordered ONE
--- NOTE | 2019-06-29 00:21 | ECWPNPC ---
PATIENT NAME: JENNA ISAAC : 1960 GENDER: MALE VISIT DATE: 06/28/2019 DISCHARGE DATE: 06/28/19 1231 VISIT LOCKED DATE TIME: PHYSICIAN: MIYA NICHOLSON MD PHYSICIAN PAGER NO: [phone] RESOURCE: MIYA NICHOLSON MD REASON FOR APPOINTMENT 1. W/C TPI BILAT NECK,RIGHT SHOULDER HISTORY OF PRESENT ILLNESS HISTORY OF PRESENT ILLNESS: PAIN THE PATIENT DESCRIBES THE PAIN... FALL RISK SCREENING: SCREENING :NO FALLS REPORTED IN THE LAST YEAR CURRENT MEDICATIONS TAKING LISINOPRIL 40 MG TABLET 1 TABLET ORALLY ONCE A DAY, NOTES: 06/28/19 TAKING ASPIR-LOW 81 MG TABLET DELAYED RELEASE 1 TABLET ORALLY ONCE A DAY, NOTES: 06/27/19 TAKING SPIRIVA RESPIMAT 2.5 MCG/ACT AEROSOL SOLUTION 2 PUFFS INHALATION ONCE A DAY, NOTES: 06/28/19 TAKING PROAIR HFA 108 (90 BASE) MCG/ACT AEROSOL SOLUTION 2 PUFFS NEEDED INHALATION FOUR TIMES DAILY NEEDED, NOTES: 06/25/19 TAKING CELEBREX 200 MG CAPSULE 1 CAPSULE ORALLY 1 CAP DAILY ALT WITH 2 CAPSULES DAILY, NOTES: 06/28/19 MEDICATION LIST REVIEWED AND RECONCILED WITH THE PATIENT PAST MEDICAL HISTORY ASTHMA PROSTATITIS ARTHRITIS LOW BACK DDD COPD SPIROMETRY 08/11: FEV1 1.63, FEV1/FVC 59% BACK PAIN BPH 11/01 MRSA 04/01 ([facility]) BASAL CELL CARCINOMA 2007 PAIN-ASSOCIATED ELEVATION OF BP (STARTED TX 03/06 WHEN WAS HAVING SEVERE BACK PAIN) 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 SURGICAL HISTORY COLONOSCOPY--DR MICHAELS APPENDECTOMY CHILD BOWEL SURGERY CHILD COLONOSCOPY (NL) 04/06 FAMILY HISTORY FATHER: , OF COPD MOTHER: , OVARIAN CA SIBLINGS: BROTHER--PROSTATE CA 4 BROTHER(S) - HEALTHY. 2DAUGHTER(S) - HEALTHY. MOTHER- OVARIAN CANCERBROTHER- PROSTATE CANCER. SOCIAL HISTORY GENERAL: TOBACCO USE ARE YOU A:FORMER SMOKER HOW LONG HAS IT BEEN SINCE YOU LAST SMOKED?> 10 YEARS LATEX QUESTIONNAIRE LATEX ALLERGY : HAVE YOU EVER DEVELOPED ANY TYPE OF REACTION AFTER HANDLING LATEX PRODUCTS SUCH RUBBER GLOVES, CONDOMS, DIAPHRAGMS, BALLOONS, SOCKS, OR UNDERWEAR?NO LATEX ALLERGY : HAVE YOU EVER DEVELOPED ANY TYPE OF REACTION DURING OR AFTER DENTAL APPOINTMENT, VAGINAL/RECTAL EXAMINATION, SURGICAL PROCEDURE, OR ANY OTHER EXPOSURE?NO DATE ASKED : 01/15/2019 LATEX RISK : HAVE YOU EVER HAD ANY DIFFICULTY BREATHING OR HIVES AFTER EATING OR HANDLING ANY FRUITS, OR VEGETABLES; SUCH KIWI, BANANAS, STONE FRUITS, OR CHESTNUTSNO LATEX RISK : DO YOU HAVE A PREVIOUS PERSONAL HISTORY OF MORE THAN NINE SURGERIES, SPINA BIFIDA, OR REPEATED CATHERIZATIONS? NO LATEX RISK : ARE YOU FREQUENTLY EXPOSED TO LATEX PRODUCTS IN YOUR OCCUPATION?YES ALCOHOL SCREENING DID YOU HAVE A DRINK CONTAINING ALCOHOL IN THE PAST YEAR?NO POINTS0 INTERPRETATIONNEGATIVE RECREATIONAL DRUG USE DRUG USE?NO PATIENT DENIES ABUSE OR MISSUSED OF ANY MEDICATION DENIES PATIENT DENIES USE OF ANY ILLEGAL SUBSTANCE INCLUDING MARIJUANA OR COCAINE DENIES CAFFEINE CAFFEINE USE?YES HOW OFTEN AND HOW MUCH? 3 CUPS OF COFFEE PER DAY SEXUAL HX HAD SEX IN THE LAST 12 MONTHS (VAGINAL, ORAL, OR ANAL)?YES WITHWOMEN ONLY HAVE YOU EVER HAD AN STD?NO CONGREGATION CONGREGATION NO PROTESTANT BELIEFS THAT WOULD IMPACT HEALTH CARE. 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 DIET: NO ADDED SALT. EXERCISE: BIKES, RESISTANCE TRAINING. MARITAL STATUS: 03/2014. OTHERS AT HOME: NONE. NEW PATIENT PAIN DIARY TODAY'S VISIT 06/28/19 PATIENT DESCRIBES PAIN :ACHING, HAVE IT ALL THE TIME FROM 0-10, WHAT LEVEL IS YOUR PAIN TODAY?7 PRECIPITATING FACTORS WORK, TOO MUCH MOVEMENT ALLEVIATING FACTORS HOT PACKS IMPACT ON FUNCTION DECREASED ABILTY TO PERFORM NORMAL ADLS HAVE YOU BEEN SICK IN THE LAST WEEK (COLD, COUGH, FEVER, FLU, ETC)NO DO YOU TAKE ANY BLOOD THINNERS?YES ASA 81 MG DAILY DO YOU HAVE ANY RASHES OR OPEN SORES?NO ANY CHANGE IN BOWEL OR BLADDER CONTROL?NO ARE YOU ALLERGIC TO SHELLFISH OR IV DYE?NO ARE YOU DIABETIC?NO DO YOU HAVE A PACEMAKER OR DEFIBRILLATOR?NO HAVE YOU FALLEN IN THE LAST 6 MONTHS?NO DO YOU USE ANY TYPE OF TOBACCO (SMOKE, SMOKELESS, CHEW, ETC.)NO ARE YOU ABUSED, NEGLECTED, OR IN AN UNSAFE ENVIRONMENT?NO DO YOU HAVE THOUGHTS OF HURTING YOURSELF OR SOMEONE ELSE?NO INTENSITY SCALE REVIEWEDNUMBER PAIN CLINIC PFS, CLERGY, PUBLIC HEALTH REFERRALS PFS REFERRAL NEEDED?NO CLERGY REFERRAL NEEDED?NO PUBLIC HEALTH REFERRAL NEEDED?NO WAS THE PROVIDER NOTIFIED OF ANY PERTINENT INFO?YES HAS THE PATIENT BEEN EDUCATED REGARDING HIS/HER PLAN OF CARE?YES HAS THE PATIENT BEEN EDUCATED REGARDING PAIN, THE RISK FOR PAIN, THE IMPORTANCE OF EFFECTIVE PAIN MANAGEMENT, AND THE PAIN ASSESSMENT PROCESS?YES HOUSING: OWNS HOME. ADVANCE DIRECTIVE ADVANCE DIRECTIVE DISCUSSED WITH PATIENT:YES PT STATES NO ADVANCED DIRECTIVES AND DECLINES WRITTEN INFORMATION AT THIS TIME. HOSPITALIZATION/MAJOR DIAGNOSTIC PROCEDURE SURGERY RELATED REVIEW OF SYSTEMS REVIEWED BY: PROVIDER: MIYA NICHOLSON MD . CONSTITUTIONAL: ANY CHANGE IN YOUR MEDICAL CONDITION? NO . CHILLS NO . FEVER NO . INFECTION: DO YOU HAVE NEW INFECTIONS? NO . DO YOU HAVE HISTORY OF MRSA? NO . MUSCULOSKELETAL: ANY NEW PATTERNS OF PAIN OR NUMBNESS? NO . GASTROENTEROLOGY: ANY NEW CHANGE IN BOWEL CONTROL? NO . GENITOURINARY: ANY NEW CHANGE IN BLADDER CONTROL? NO . IS THERE A CHANCE YOU COULD BE ? NO . HEMATOLOGY/LYMPH: DO YOU TAKE ANY BLOOD THINNERS? (FOR EXAMPLE- COUMADIN, PLAVIX, AGGRENOX, PLATEL, PRADAXA, OR XARELTO) NO . WHEN WAS YOUR LAST DOSE? DATE: TIME: . NEUROLOGY: HAVE YOU FALLEN IN THE PAST 12 MONTHS? NO . ANY NEW EXTREMITY NUMBNESS OR WEAKNESS? NO . CARDIOLOGY: DO YOU HAVE A PACEMAKER OR DEFIBRILLATOR? NO . RESPIRATORY: HAVE YOU BEEN SICK IN THE PAST WEEK? NO . FEVER NO . FLU LIKE SYMPTOMS? NO . COUGH NO . INTEGUMENTARY: DO YOU HAVE ANY RASHES OR OPEN SORES? NO . ALLERGIC/IMMUNO: ARE YOU ALLERGIC TO IV DYE? NO . ANY NEW ALLERGIES? NO . PSYCHIATRIC: DO YOU HAVE THOUGHTS OF HURTING YOURSELF OR SOMEONE ELSE? NO . ARE YOU ABUSED, NEGLECTED, OR IN AN UNSAFE ENVIRONMENT? NO . ENDOCRINOLOGY: ARE YOU DIABETIC? NO . OTHER: DO YOU NEED ANY PRESCRIPTIONS? NO . IF YES, PLEASE LIST: ____ . ANY NEW PROBLEMS WITH YOUR MEDICATIONS? NO . WHEN DID YOU LAST EAT? 06/27/19 . WHEN DID YOU LAST DRINK? 06/28/19 0700 . WHAT DID YOU LAST DRINK? BLACK COFFEE . NAME OF PERSON DRIVING YOU HOME? ____ . DO YOU HAVE ANY OTHER QUESTIONS OR CONCERNS NO . VITAL SIGNS WT 183.0 LBS, HT 66 IN, BMI 29.53 INDEX, BP 135/79 MM HG, HR 81 /MIN, RR 18 /MIN, TEMP 97.0 F, OXYGEN SAT % 98%, SAFE IN ENV? (Y/N) Y, NA INITIALS AW 1052, REVIEWED BY: EM. ASSESSMENTS MYALGIA, OTHER SITE - M79.18 (PRIMARY) PROCEDURES PN WORKMANS' COMP OPINION IN YOUR OPINION, WAS THE INCIDENT THAT THE PATIENT DESCRIBED THE COMPETENT MEDICAL CAUSE OF THIS INJURY/ILLNESS? YES ARE THE PATIENT'S COMPLAINTS CONSISTENT WITH HIS/HER HISTORY OF THE INJURY/ILLNESS? YES IS THE PATIENT'S HISTORY OF THE INJURY/ILLNESS CONSISTENT WITH YOUR OBJECTIVE FINDING? YES WHAT IS THE PERCENTAGE OF TEMPORARY IMPAIRMENT? MODERATE TO MARKED = 66.7% IS THE PATIENT WORKING? NO DOCTOR ON SITE: MIYA MOLINA MD PN TRIGGER POINT INJECTION NO STEROIDS DATE OF PROCEDURE : PRE PROCEDURE DIAGNOSIS 1. MYALGIA. 2. PAIN AT BILATERAL NECK AND RIGHT SHOULDER AREA POST PROCEDURE DIAGNOSIS 1. MYALGIA. 2. PAIN AT BILATERAL NECK AND RIGHT SHOULDER AREA PROCEDURE TRIGGER POINT INJECTION AT BILATERAL NECK AND RIGHT SHOULDER AREA SURGEON DR. MIYA NICHOLSON SOFTWARE TEST ANALYST NONE ANESTHESIA LOCAL PRE PROCEDURE NOTE 59-YEAR-OLD PATIENT WITH HISTORY OF CHRONIC PAIN AT BILATERAL NECK AND RIGHT SHOULDER. I EVALUATED THE PATIENT AND REVIEWED THE CHART. THERE IS EVIDENCE OF BANDS OF TISSUE WITH RESTRICTION OF MOVEMENT AND PRESENCE OF TRIGGER POINT AT THE BILATERAL NECK AND RIGHT SHOULDER AREA. I WENT OVER THE RISKS, ALTERNATIVES, AND BENEFITS ASSOCIATED WITH THIS PROCEDURE. THE PATIENT WOULD LIKE TO PROCEED AND GAVE CONSENT TO PERFORM THE PROCEDURE. THE PATIENT DENIES UNEXPLAINABLE WEIGHT LOSS, FEVER, CHILLS, OR NEW CHANGES IN URINARY OR BOWEL CONTROL. THE PATIENT IS COVID-19 NEGATIVE DESCRIPTION OF PROCEDURE THE PATIENT WAS BROUGHT TO THE PROCEDURE ROOM AND PLACED IN THE SITTING POSITION. THE AREA WAS CLEANED WITH ALCOHOL. THE PROCEDURE WAS DONE USING ASEPTIC STERILE TECHNIQUES. I CHECKED LATERALITY AND THE LEVEL WHERE THE PROCEDURE WAS GOING TO BE PERFORMED WITH THE PATIENT AND THE SUPPORTING STAFF AT THE MOMENT OF THE TIME OUT IN THE PROCEDURE ROOM. USING A 25-GAUGE NEEDLE, TRIGGER POINTS WERE INJECTED INTO THE BILATERAL NECK AND RIGHT SHOULDER AREA WITH A TOTAL OF 40 ML OF BUPIVACAINE 0.25%. AGREED WITH THE PATIENT THE PROCEDURE WAS DONE WITHOUT STEROIDS. THERE WAS NO EVIDENCE OF BLOOD, PARESTHESIA OR CEREBROSPINAL FLUID DURING THE PROCEDURE. THE PATIENT WAS SENT TO THE RECOVERY ROOM. THE PATIENT WAS MOVING THE EXTREMITIES AND DOING WELL. THERE WAS NO COMPLICATION DURING THE PROCEDURE POST PROCEDURE NOTE THE PATIENT WILL BE SEEN IN A FOLLOW UP IN THE NEXT FEW WEEKS. I AM LOOKING FOR LONG LASTING PAIN RELIEF FOR THE PATIENT WITH THIS INJECTION. INSTRUCTIONS WERE GIVEN, QUESTIONS WERE ANSWERED, AND THE PATIENT EXPRESSED UNDERSTANDING AND AGREED WITH THE PLAN. I, KLARISSA RIVERA, DOCUMENTED THE ABOVE INFORMATION ACTING A SCRIBE FOR DR. NICHOLSON. 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 IT IS NOT A COPY OF THE [employer] PROGRESS NOTE. BRISA
== END ==
LOC: M PAIN 11:15
PROVIDERS: ATTEND Anesthesiology
DX: M79.18 Myalgia, other site (principal); J44.9 Chronic obstructive pulmonary disease, unspecified; Z86.14 Personal history of Methicillin resistant Staphylococcus aureus infection; Z87.891 Personal history of nicotine dependence; Z79.82 Long term (current) use of aspirin; Z79.899 Other long term (current) drug therapy

== ENCOUNTER → 2019-07-06 | Outpatient (REF) | payer OTHER ==
[2019-07-06 11:40] LABS: HEMATOCRIT 42.3 % (42.0-52.0); HEMOGLOBIN 13.6 g/dl (13.5-17.5); MEAN CORPUSCULAR HEMOGLOBIN 29.2 pg (27.0-33.0); MEAN CORPUSCULAR HGB CONC 32.2 g/dl (32.0-36.5); MEAN CORPUSCULAR VOLUME 90.8 fl (80.0-96.0); PLATELET COUNT, AUTOMATED 307 10^3/uL (150-450); RED BLOOD COUNT 4.66 10^6/uL (4.30-6.10); WHITE BLOOD COUNT 5.1 10^3/uL (4.0-10.0)
[2019-07-06 11:47] LABS: ALBUMIN 3.7 GM/DL (3.2-5.2); ALT/SGPT 30 U/L (12-78); BILIRUBIN,TOTAL 0.3 MG/DL (0.2-1.0); BLOOD UREA NITROGEN 27 MG/DL (7-18); CARBON DIOXIDE LEVEL 29 MEQ/L (21-32); CHLORIDE LEVEL 106 MEQ/L (98-107); CHOLESTEROL LEVEL 215 MG/DL (<200); CHOLESTEROL RISK RATIO 3.467 (<5); CREATININE FOR GFR 1.26 MG/DL (0.70-1.30); GLOMERULAR FILTRATION RATE > 60.0 (>49); GLUCOSE, FASTING 95 MG/DL (70-100); HDL CHOLESTEROL 62 MG/DL (>40); LDL CHOLESTEROL 132 MG/DL (<100); NON-HDL-C 153 MG/DL; POTASSIUM SERUM 4.9 MEQ/L (3.5-5.1); SODIUM LEVEL 140 MEQ/L (136-145); TOTAL PROTEIN 6.6 GM/DL (6.4-8.2); TRIGLYCERIDES LEVEL 105 MG/DL (<150)
== END ==
LOC: M SFHCCLAY 08:11
PROVIDERS: ATTEND Family Medicine
DX: J44.9 Chronic obstructive pulmonary disease, unspecified (principal); I10 Essential (primary) hypertension; E78.2 Mixed hyperlipidemia; Z12.5 Encounter for screening for malignant neoplasm of prostate
CPT/HCPCS: 80053; 80061; 85027; G0103

== ENCOUNTER → 2019-08-06 | Outpatient (CLI) | payer OTHER ==
--- NOTE | 2019-08-10 04:03 | ECWPNPC ---
PATIENT NAME: JENNA ISAAC : 1960 GENDER: MALE VISIT DATE: 08/06/2019 DISCHARGE DATE: 08/06/19 1023 VISIT LOCKED DATE TIME: PHYSICIAN: DANIEL ELY PHYSICIAN PAGER NO: [phone] RESOURCE: DANIEL ELY REASON FOR APPOINTMENT 1. POST PROCEDURE PAT DONE HISTORY OF PRESENT ILLNESS GENERAL: HERE FOR POST PROCEDURE FOLLOW-UP. HEAD TRIGGER POINT INJECTIONS, BILATERAL NECK AND RIGHT SHOULDER ON 06/28/2019. PATIENT REPORTS IMPROVEMENT IN THAT REGION OF PAIN THAT CONTINUES TODAY. RATING PAIN VAS 4/10. DISCUSSED TREATMENT PLAN. -. FALL RISK SCREENING: SCREENING :NO FALLS REPORTED IN THE LAST YEAR PAIN SCREENING: PATIENT HAS A COMPLAINT OF ACUTE OR CHRONIC PAIN :YES LOCATION OF PAIN:NECK INTENSITY OF PAIN (SCALE OF 1 TO 10):4 WHAT DOES YOUR PAIN FEEL LIKE:ACHING, BURNING, CONTINOUS, OTHER NURSING NOTE: -. PAIN CENTER INTAKE QUESTIONS: DO YOU HAVE A HISTORY OF MRSA? :NO DO YOU TAKE A BLOOD THINNERS? :NO DO YOU HAVE ANY BLEEDING DISORDERS? :NO ANY NEW NUMBNESS OR WEAKNESS IN YOUR LEGS OR ARMS? :NO ANY PACEMAKER,DEFIBRILLATOR, OR DORSAL COLUMN STIMULATOR? :NO DO YOU HAVE ANY RASHES OR OPEN SORES? :NO ARE YOU ALLERGIC TO IV DYE? :NO ARE YOU DIABETIC? :NO ANY NEW PROBLEMS WITH YOUR MEDICATIONS? :NO HAVE YOU RECEIVED A VACCINE IN THE PAST 30 DAYS? :NO DO YOU PLAN TO RECEIVE A VACCINE IN THE NEXT 21 DAYS? :NO DO YOU NEED ANY PRESCRIPTION? :NO DO YOU TAKE ANY IMMUNOSUPPRESSIVE MEDICATIONS? :NO IS THERE A CHANCE YOU COULD BE ? :NO ARE YOU BREAST FEEDING? :NO CURRENT MEDICATIONS TAKING LISINOPRIL 40 MG TABLET 1 TABLET ORALLY ONCE A DAY, NOTES: 06/28/19 TAKING ASPIR-LOW 81 MG TABLET DELAYED RELEASE 1 TABLET ORALLY ONCE A DAY, NOTES: 06/27/19 TAKING SPIRIVA RESPIMAT 2.5 MCG/ACT AEROSOL SOLUTION 2 PUFFS INHALATION ONCE A DAY, NOTES: 06/28/19 TAKING PROAIR HFA 108 (90 BASE) MCG/ACT AEROSOL SOLUTION 2 PUFFS NEEDED INHALATION FOUR TIMES DAILY NEEDED, NOTES: 06/25/19 TAKING CELEBREX 200 MG CAPSULE 1 CAPSULE ORALLY 1 CAP DAILY ALT WITH 2 CAPSULES DAILY, NOTES: 06/28/19 MEDICATION LIST REVIEWED AND RECONCILED WITH THE PATIENT PAST MEDICAL HISTORY ASTHMA PROSTATITIS ARTHRITIS LOW BACK DDD COPD SPIROMETRY 08/11: FEV1 1.63, FEV1/FVC 59% BACK PAIN BPH 11/01 MRSA 04/01 (BENJAMIN) BASAL CELL CARCINOMA 2007 PAIN-ASSOCIATED ELEVATION OF BP (STARTED TX 03/06 WHEN WAS HAVING SEVERE BACK PAIN) 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 SURGICAL HISTORY COLONOSCOPY--DR MICHAELS APPENDECTOMY CHILD BOWEL SURGERY CHILD COLONOSCOPY ([place]) 04/06 FAMILY HISTORY FATHER: , OF COPD MOTHER: , OVARIAN CA SIBLINGS: BROTHER--PROSTATE CA 4 BROTHER(S) - HEALTHY. 2DAUGHTER(S) - HEALTHY. MOTHER- OVARIAN CANCERBROTHER- PROSTATE CANCER. SOCIAL HISTORY GENERAL: TOBACCO USE ARE YOU A:FORMER SMOKER HOW LONG HAS IT BEEN SINCE YOU LAST SMOKED?> 10 YEARS LATEX QUESTIONNAIRE LATEX ALLERGY : HAVE YOU EVER DEVELOPED ANY TYPE OF REACTION AFTER HANDLING LATEX PRODUCTS SUCH RUBBER GLOVES, CONDOMS, DIAPHRAGMS, BALLOONS, SOCKS, OR UNDERWEAR?NO LATEX ALLERGY : HAVE YOU EVER DEVELOPED ANY TYPE OF REACTION DURING OR AFTER DENTAL APPOINTMENT, VAGINAL/RECTAL EXAMINATION, SURGICAL PROCEDURE, OR ANY OTHER EXPOSURE?NO LATEX RISK : HAVE YOU EVER HAD ANY DIFFICULTY BREATHING OR HIVES AFTER EATING OR HANDLING ANY FRUITS, OR VEGETABLES; SUCH KIWI, BANANAS, STONE FRUITS, OR CHESTNUTSNO LATEX RISK : DO YOU HAVE A PREVIOUS PERSONAL HISTORY OF MORE THAN NINE SURGERIES, SPINA BIFIDA, OR REPEATED CATHERIZATIONS? NO LATEX RISK : ARE YOU FREQUENTLY EXPOSED TO LATEX PRODUCTS IN YOUR OCCUPATION?YES DATE ASKED : 08/05/2019 ALCOHOL SCREENING DID YOU HAVE A DRINK CONTAINING ALCOHOL IN THE PAST YEAR?NO POINTS0 INTERPRETATIONNEGATIVE RECREATIONAL DRUG USE DRUG USE?NO PATIENT DENIES ABUSE OR MISSUSED OF ANY MEDICATION DENIES PATIENT DENIES USE OF ANY ILLEGAL SUBSTANCE INCLUDING MARIJUANA OR COCAINE DENIES CAFFEINE CAFFEINE USE?YES HOW OFTEN AND HOW MUCH? 3 CUPS OF COFFEE PER DAY SEXUAL HX HAD SEX IN THE LAST 12 MONTHS (VAGINAL, ORAL, OR ANAL)?YES WITHWOMEN ONLY HAVE YOU EVER HAD AN STD?NO WORSHIP WORSHIP NO PRESYBETERIAN BELIEFS THAT WOULD IMPACT HEALTH CARE. 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 DIET: NO ADDED SALT. EXERCISE: BIKES, RESISTANCE TRAINING. MARITAL STATUS: 03/2014. OTHERS AT HOME: NONE. PAIN CLINIC PFS, CLERGY, PUBLIC HEALTH REFERRALS PFS REFERRAL NEEDED?NO CLERGY REFERRAL NEEDED?NO PUBLIC HEALTH REFERRAL NEEDED?NO WAS THE PROVIDER NOTIFIED OF ANY PERTINENT INFO?YES HAS THE PATIENT BEEN EDUCATED REGARDING HIS/HER PLAN OF CARE?YES HAS THE PATIENT BEEN EDUCATED REGARDING PAIN, THE RISK FOR PAIN, THE IMPORTANCE OF EFFECTIVE PAIN MANAGEMENT, AND THE PAIN ASSESSMENT PROCESS?YES HOUSING: OWNS HOME. ADVANCE DIRECTIVE ADVANCE DIRECTIVE DISCUSSED WITH PATIENT:YES PT STATES NO ADVANCED DIRECTIVES AND DECLINES WRITTEN INFORMATION AT THIS TIME. HOSPITALIZATION/MAJOR DIAGNOSTIC PROCEDURE SURGERY RELATED REVIEW OF SYSTEMS CONSTITUTIONAL: ANY RECENT FEVER OR ILLNESS NO . CHILLS NO . GASTROENTEROLOGY: BOWEL INCONTINENCE NO . ANY NEW CHANGE IN BOWEL CONTROL? NO . ABDOMINAL PAIN NO . CONSTIPATION NO . GENITOURINARY: ANY NEW CHANGE IN BLADDER CONTROL? NO . IS THERE A CHANCE YOU COULD BE ? NO . URINARY INCONTINENCE NO . CARDIOLOGY: CHEST PRESSURE NO . CHEST PAIN NO . RESPIRATORY: COUGH NO . SHORTNESS OF BREATH NO . VITAL SIGNS WT 182.6 LBS, HT 66 IN, BMI 29.47 INDEX, BP 154/82 MM HG, HR 72 /MIN, RR 18 /MIN, TEMP 97.2 F, OXYGEN SAT % 97%, SAFE IN ENV? (Y/N) YES, NA INITIALS AW 0956, REVIEWED BY: AVA. EXAMINATION GENERAL EXAMINATION: GENERALAWAKE,ALERT ,PLEASANT . PSYCHAFFECT NORMAL . LUNGS:LUNG POZO ARE CLEAR TO AUSCULTATION BILATERALLY. GOOD MOVEMENT OF AIR . HEART:S1, S2 IN A REGULAR RATE AND RHYTHM. NO SIGNIFICANT MURMURS, RUBS OR GALLOPS NOTED . ASSESSMENTS MYALGIA, OTHER SITE - M79.18 (PRIMARY) TREATMENT MYALGIA, OTHER SITE NOTES: CONTINUE HOME EXERCISE AND WALKING. FOLLOW-UP AT PAIN CENTER IN 3 MONTHS. ENCOURAGED TO CALL US SHOULD HIS PAIN INCREASE FOR CONSIDERATION FOR INJECTION THERAPY. DISPOSITION & COMMUNICATION FOLLOW UP 3 MONTHS (REASON: WORKMEN'S COMP NECK, SHOULDER) ELECTRONICALLY SIGNED BY DANIEL WARREN, BRIANA ON 08/09/2019 AT 12:55 PM EDT DISCLAIMER : THIS IS A VISIT SUMMARY EXTRACTED FROM THE [employer] CHART. IT IS NOT A COPY OF THE [employer] PROGRESS NOTE. BRISA
== END ==
LOC: M PAIN 10:00
PROVIDERS: ATTEND Nurse Practitioner Family
DX: M79.18 Myalgia, other site (principal)

== ENCOUNTER → 2019-11-05 | Outpatient (CLI) | payer OTHER | LOC: M PAIN 08:26 | PROVIDERS: ATTEND Nurse Practitioner Family | DX: M79.18 Myalgia, other site (principal) ==

== ENCOUNTER → 2020-01-25 | Outpatient (CLI) | payer BC ==
--- NOTE | 2020-01-25 09:18 | REP ---
INDICATION: R06.00 DYSPNEA ON EXERTION J44.9 COPD. COMPARISON: Comparison study July 29, 2017. TECHNIQUE: Two views.. FINDINGS: The lungs are well inflated and free of infiltrate. The pleural angles are sharp. The heart size is normal. Pulmonary vasculature is not increased. No significant bony abnormality is seen. IMPRESSION: Negative chest x-ray. <Electronically signed by Edy Albert > 01/25/20 0914
== END ==
LOC: M CLY 08:56
PROVIDERS: ATTEND Family Medicine
DX: J44.9 Chronic obstructive pulmonary disease, unspecified (principal); R06.00 Dyspnea, unspecified

== ENCOUNTER → 2020-01-25 | Outpatient (REF) | payer OTHER ==
[2020-01-25 11:50] LABS: HEMATOCRIT 44.1 % (42.0-52.0); HEMOGLOBIN 13.9 g/dl (13.5-17.5); MEAN CORPUSCULAR HEMOGLOBIN 28.5 pg (27.0-33.0); MEAN CORPUSCULAR HGB CONC 31.5 g/dl (32.0-36.5); MEAN CORPUSCULAR VOLUME 90.6 fl (80.0-96.0); PLATELET COUNT, AUTOMATED 314 10^3/uL (150-450); RED BLOOD COUNT 4.87 10^6/uL (4.30-6.10); WHITE BLOOD COUNT 6.6 10^3/uL (4.0-10.0)
[2020-01-25 12:32] LABS: ALBUMIN 3.6 GM/DL (3.2-5.2); ALT/SGPT 27 U/L (12-78); BILIRUBIN,TOTAL 0.4 MG/DL (0.2-1.0); BLOOD UREA NITROGEN 29 MG/DL (7-18); CALCIUM LEVEL 9.4 MG/DL (8.8-10.2); CARBON DIOXIDE LEVEL 30 MEQ/L (21-32); CHLORIDE LEVEL 104 MEQ/L (98-107); CREATININE FOR GFR 1.28 MG/DL (0.70-1.30); FREE T4 0.96 NG/DL (0.76-1.46); GLOMERULAR FILTRATION RATE > 60.0 (>49); GLUCOSE, FASTING 97 MG/DL (70-100); SODIUM LEVEL 138 MEQ/L (136-145); TOTAL PROTEIN 6.7 GM/DL (6.4-8.2)
== END ==
LOC: M SFHCADAM 08:47
PROVIDERS: ATTEND Family Medicine
DX: J44.9 Chronic obstructive pulmonary disease, unspecified (principal); R06.00 Dyspnea, unspecified

== ENCOUNTER → 2020-02-10 | Outpatient (CLI) | payer BC, OTHER ==
--- NOTE | 2020-02-11 13:00 | ECHO ---
DATE OF PROCEDURE: 02/10/2020 Age: 59 Gender: Male Height: 66 inches Weight: 188 pounds Body surface area: 1.95 m2 PATIENT LOCATION: Outpatient. REFERRING PHYSICIAN: Abel Muller MD. INDICATION: Dyspnea. MEASUREMENTS: 2D Measurements: RV 3.5 cm LV 4.2 cm Septum 1.1 cm Posterior wall 1.1 cm Aortic Root 3.7 cm LA 3.5 cm LVEF 70% Doppler Measurements: AV 1.0 m/s LVOT 0.8 m/s LVOT diameter 2.2 cm MV-E 45, A 53, E/A ratio 0.8 Early mitral deceleration time 230 msec E prime medial 7.5, A prime medial 10, E prime lateral 10.6 Average E/E prime ratio 5/PCWP - 8 mmHg PV 0.8 m/s Pulmonary artery acceleration time 140 msec PASP 20 mmHg IVC 1.5 cm COMMENTS: Normal sinus rhythm without intraventricular conduction disturbance. M-mode and two-dimensional echocardiography was performed with pulse, continuous wave, color flow, and tissue Doppler studies. Normal left ventricular size, wall thickness, and hyperkinetic wall motion. Normal left atrial size with grade 1 LV diastolic dysfunction with currently normal estimated mean left atrial pressure. Normal right heart chamber sizes, wall motion, and estimated pulmonary arterial pressure. Normal IVC size and collapse against an elevated central venous pressure. Normal aortic dimensions. Normal appearing and functioning aortic valve. Normal appearing and functioning mitral valve with no more than trace mitral insufficiency. Normal appearing tricuspid valve with trace insufficiency. No apparent intracardiac mass or pericardial effusion. MTDD
== END ==
LOC: M CARPUL 10:41
PROVIDERS: ATTEND Family Medicine
DX: R06.00 Dyspnea, unspecified (principal)

== ENCOUNTER → 2020-04-12 | Outpatient (CLI) | payer BC, OTHER ==
[~2020-04-12] MED LIST changes: +ASPI81TA26 PO; -BUPIVACAINE HCL 0.25% 10ML VIAL As Ordered ONE; -BUPIVACAINE HCL 0.25% 30ML VIAL As Ordered ONE; +CELE1CAP4 PO; +CELE1CAP88 PO; +LISI40TA4 PO; +TREL1AER INH; -TRIAMCINOLONE ACETONIDE SUSP 40 MG/ML VIAL (J3301) As Ordered ONE; +VENTAER INH; -diazePAM 5 MG TAB As Ordered ONE
== END ==
LOC: M LABSMTC 09:54
PROVIDERS: ATTEND Anesthesiology
DX: Z01.812 Encounter for preprocedural laboratory examination (principal); Z20.822 Contact with and (suspected) exposure to COVID-19

== ENCOUNTER 2020-04-17 07:22 | Day surgery (SDC) | payer BC, OTHER ==
[~2020-04-17] VITALS: Ht 167.6 cm; Wt 84.4 kg
[~2020-04-17 07:22] MED LIST changes: +LIDOCAINE 2% 100MG/5ML SDV (FOR ANES.) As Ordered ONE; +NS 1,000 ML IV ONE; +propofoL 200 MG/20 ML VIAL As Ordered ONE
--- OUTSIDE RECORDS SUMMARY | 2020-04-17 07:27 | CCD ---
Author Author [facility] Organization [facility] Address Unknown Phone Unavailable Care Team Providers Care Parking Meter Attendant Name Role Phone Dulce Mariaakin Abel Unavailable PROBLEMS Type Condition ICD9-CM Code DCO45-YC Code Onset Dates Condition S tatus SNOMED Code Notes Problem Enlarged prostate without lower urinary tract symptoms N40.0 Active 454764543 Problem Chronic obstructive pulmonary disease, unspecified J44.9 Active 99362267 Problem Mixed hyperlipidemia E78.2 Active 492292133 Problem Myalgia M79.10 Active 84158606 Problem Encounter for screening for malignant neoplasm of prostate Z12.5 Active 723004656 Problem Myalgia, other site M79.18 Active 52091488 Problem Essential hypertension I10 Active 17065622 Problem Other intervertebral disc degeneration, lumbosacral region M51.37 Active 53353684 Problem Other spondylosis with myelopathy, 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 He will continue working without restrictions, but I encouraged him to call me immediately if his pain should get out of hand again Problem Spondylosis without myelopathy or radiculopathy, cervical region M47.812 Active 290438080 ALLERGIES No Known Allergies ENCOUNTERS from 1960 to 2020-02-15 Encounter Location Date Provider Diagnosis [facility] [id number] [place] [address] Jan, Luis Enrique Muller IMMUNIZATIONS Vaccine Route Administration Date Status Influenza (6mo & up) Fluzone Unknown Jan 24, 2014 Adm inistered SOCIAL HISTORY Tobacco Use: Social History Observation Description Date Details (start date - stop date) Former Smoker Sex Assigned At : Social History Observation Description Sex Assigned At Unknown Education: Question Answer Notes Level of Education: High School Language: Question Answer Notes Languages spoken: Syriac Adventism: Question Answer Notes Adventism No druze beliefs that would impact health care. Domestic Violence: Question Answer Notes Status: Sexual Hx: Question Answer Notes Had sex in the last 12 months (vaginal, oral, or anal)? Yes Have you ever had an STD? No with Women only Alcohol Screening: Question Answer Notes Did you have a drink containing alcohol in the past year? No Points 0 Interpretation Negative Tobacco Use: Question Answer Notes Are you a: former smoker How long has it been since you last smoked? > 10 years REASON FOR REFERRAL No Information VITAL SIGNS No information MEDICATIONS Medication SIG (Take, Route, Frequency, Duration) Notes Start Da te End Date Status Lisinopril 40 MG 1 tablet Orally Once a day Active ProAir HFA 108 (90 Base) MCG/ACT 2 puffs as needed Inh alation four times daily as needed for 90 day(s) Feb, Active Trelegy Ellipta 100-62.5-25 MCG/INH 1 puff Inhalation Once a day for 90 day(s) Dec, Active Aspir-Low 81 MG 1 tablet Orally Once a day for 30 day(s) Active Celebrex 200 MG 1 capsule Orally 1 cap daily alt with 2 capsules daily for 90 days Nov, Active PROCEDURES No Information RESULTS No Results REASON FOR VISIT echo MEDICAL (GENERAL) HISTORY Type Description Date Medical History asthma Medical History Prostatitis Medical History Arthritis low back DDD Medical History COPD spirometry 08/11: FEV1 1 .63, FEV1/FVC 59%; jamir 01/13: FEV1 1.9, FEV1/FVC 67% Medical History back pain Medical History BPH 11/01 Medical History MRSA 04/01 (Rodriguez) Medical History basal cell carcinoma 2007 Medical History pain-associated elevation of BP (started tx 03/06 when was having severe back pain) Medical History 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 Surgical History colonoscopy--Dr Ellis Surgical History appendectomy as child Surgical History bowel surgery as child Surgical History colonoscopy (nl) 04/06 Hospitalization History Surgery Related Goals Section No Information Health Concerns No Information MEDICAL EQUIPMENT No Information MENTAL STATUS No Information FUNCTIONAL STATUS No Information ASSESSMENTS No Information PLAN OF TREATMENT Medication Medication Name Sig Start Date Stop Date Trelegy Ellipta 100-62.5-25 MCG/INH 1 puff Inhalation Once a day for 90 day(s) Dec, Next Appt Details Provider Name:Abel Muller, 2020-01 08:15:00 AM, [address], [place], [address], Provider Name:Kelle Coffman, 2020-05-0 9 08:00:00 AM, [address] [place], [address], Insurance Providers Payer Name Payer Address Payer Phone Insured Name Patient Relati onship to Insured Coverage Start Date Coverage End Date [facility] [address] [facility] [id number] [phone] JENNA ISAAC self
--- OUTSIDE RECORDS SUMMARY | 2020-04-17 07:27 | CCD ---
Author Author [facility] Organization [facility] Address Unknown Phone Unavailable Support Name Relationship Address Phone RE Next Of Kin Unknown Unavailable [place] [address] JANEE ISAAC Next Of Kin [facility] [place] [address] [facility] Next Of Kin [address] [place] [address] ROMANAPEGGYA [place] [address] [facility] DEPT OF CORRECTIONS Next Of Kin [address] [place] [address] THIEN ISAAC Next Of Kin [address] [place] [address] Janee Isaac ECON Unknown Unavailable Re-disclosure Warning The records that you are about to access may contain information from federally-assisted alcohol or drug abuse programs. If such information is present, then the following federally mandated warning applies: This information has been disclosed to you from records protected by federal confidentiality rules (42 CFR part 2). The federal rules prohibit you from making any further disclosure of this information unless further disclosure is expressly permitted by the written consent of the person to whom it pertains or as otherwise permitted by 42 CFR part 2. A general authorization for the release of medical or other information is NOT sufficient for this purpose. The Federal rules restrict any use of the information to criminally investigate or prosecute any alcohol or drug abuse patient.The records that you are about to access may contain highly sensitive health information, the redisclosure of which is protected by Article 27-F of the [place] Public Health law. If you continue you may have access to information: Regarding HIV / AIDS; Provided by facilities licensed or operated by the [place] Office of Mental Health; or Provided by the [place] Office for People With Developmental Disabilities. If such information is present, then the following [place] mandated warning applies: This information has been disclosed to you from confidential records which are protected by state law. State law prohibits you from making any further disclosure of this information without the specific written consent of the person to whom it pertains, or as otherwise permitted by law. Any unauthorized further disclosure in violation of state law may result in a fine or senior living sentence or both. A general authorization for the release of medical or other information is NOT sufficient authorization for further disc losure. Family History Family Member Name Family Member Gender Family Member Status Date o f Status Description Data Source(s) Unknown Unknown Problem MEDENT ([facility]) mother Unknown Unknown Problem MEDENT ([facility], ) Unknown Unknown Problem MEDENT ([facility] ) Unknown Unknown Problem MEDENT ([facility] ) Unknown Unknown Problem MEDENT (Alfredo Ellis MD, ) Encounters Encounter Providers Location Date Indications Data Source(s ) Outpatient [address] [facility] [id number] 02/23/2020 12:00:00 AM EST eCW1 ([facility]) Unknown [address] [facility] [id number] 02/01/2020 12:00:00 AM EST [facility] Unknown [address] [facility] [id number] 01/25/2020 12:00:00 AM EST eCW1 ([facility]) Outpatient [address] [facility] [id number] 01/24/2020 12:00:00 AM EST eCW1 ([facility]) Outpatient [address] [facility] [id number] 12/03/2019 12:00:00 AM EDT eCW1 ([facility]) [facility] [address] [facility] [id number] 11/04/2019 12:00:00 AM EDT eCW1 ([facility]) [facility] [address] [place] [phone] 08/16/2019 12:00:00 AM EDT eCW1 ([facility]) Outpatient [address] [facility] [id number] 08/06/2019 12:00:00 AM EDT eCW1 ([facility]) Outpatient [address] [place] [phone] 07/28/2019 12:00:00 AM EDT eCW1 ([facility]) [facility] [address] [place] [phone] 06/30/2019 12:00:00 AM EDT eCW1 ([facility]) [facility] [address] [place] [phone] 06/28/2019 12:00:00 AM EDT eCW1 ([facility]) [facility] [place] [address] [place] [phone] 06/23/2019 12:00:00 AM EDT eCW1 ([facility]) [facility] [place] [address] [place] [phone] 05/25/2019 12:00:00 AM EDT eCW1 ([facility]) [facility] [address] [place] [phone] 05/07/2019 12:00:00 AM EDT eCW1 ([facility]) [facility] [address] [place] [phone] 05/06/2019 12:00:00 AM EDT eCW1 ([facility]) [facility] [address] [place] [phone] 04/26/2019 12:00:00 AM EST eCW1 ([facility]) [facility] [place] [address] [place] [phone] 03/24/2019 12:00:00 AM EST eCW1 ([facility]) [facility] [address] [place] [address] [place] [phone] 03/18/2019 12:00:00 AM EST eCW1 ([facility]) Immunizations Vaccine Date Status Description Data Source(s) INFLUENZA VIRUS VACCINE QUADRIVALENT (6 MOS AN D UP) 12/31/2019 12:00:00 AM EST completed [facility] Medications Medication Brand Name Start Date Product Form Dose Route Admi nistrative Instructions Pharmacy Instructions Status Indications Reaction Description Data Source(s) 17.5-3.13-1.6 gram 02/13/2020 12:00:00 AM EST recon soln 354 TAKE DIRECTED BY MOUTH PER DOCTOR'S BOWEL PREP INSTRUCTIONS TAKE DIRECTED BY MOUTH PER DOCTOR'S BOWEL PREP INSTRUCTIONS SOLD: 02/23/2020 [facility] Magnesium Hydroxide 80 MG/ML Oral Suspension Milk Of Magnesi a 02/11/2020 12:00:00 AM EST ORAL active M EDENT ([facility], ) Suprep Bowel Prep Kit Suprep Bowel Prep Kit 02/11/2020 12:00:00 AM EST active MEDENT ([facility], ) 100-62.5-25 mcg 01/25/2020 12:00:00 AM EST blister with kee ce 180 INHALE ONE PUFF BY MOUTH EVERY DAY INHALE ONE PUFF BY MOUTH EVERY DAY SOLD: 01/27/2020 [facility] Trelegy Ellipta 100-62.5-25 MCG/INH Trelegy Ellipta 100-62.5 -25 MCG/INH 01/24/2020 12:00:00 AM EST 1.0 {puff} active Trelegy Ellipta 100-62.5-25 MCG/INH eCW1 ([facility]) Trelegy Ellipta 100-62.5-25 MCG/INH Trelegy Ellipta 100-62.5 -25 MCG/INH 01/24/2020 12:00:00 AM EST 1.0 {puff} active Trelegy Ellipta 100-62.5-25 MCG/INH eCW1 ([facility]) Trelegy Ellipta 100-62.5-25 MCG/INH Trelegy Ellipta 100-62.5 -25 MCG/INH 01/24/2020 12:00:00 AM EST 1.0 {puff} active Trelegy Ellipta 100-62.5-25 MCG/INH eCW1 ([facility]) Trelegy Ellipta 100-62.5-25 MCG/INH Trelegy Ellipta 100-62.5 -25 MCG/INH 01/24/2020 12:00:00 AM EST 1.0 {puff} active Trelegy Ellipta 100-62.5-25 MCG/INH eCW1 ([facility]) 2.5 mcg/actuation 08/18/2019 12:00:00 AM EDT mist 12 INHALE TWO PUFFS BY MOUTH EVERY DAY INHALE TWO PUFFS BY MOUTH EVERY DAY SOLD: 11/23/2019 [facility] 2.5 mcg/actuation 08/18/2019 12:00:00 AM EDT mist 12 INHALE TWO PUFFS BY MOUTH EVERY DAY INHALE TWO PUFFS BY MOUTH EVERY DAY SOLD: 08/23/2019 [facility] 90 mcg/actuation 05/26/2019 12:00:00 AM EDT HFA aerosol inha ler 25 INHALE TWO PUFFS BY MOUTH FOUR TIMES A DAY NEEDED INHALE TWO PUFFS BY MOUTH FOUR TIMES A DAY NEEDED SOLD: 02/23/2020 [facility] 90 mcg/actuation 05/26/2019 12:00:00 AM EDT HFA aerosol inha ler 25 INHALE TWO PUFFS BY MOUTH FOUR TIMES A DAY NEEDED INHALE TWO PUFFS BY MOUTH FOUR TIMES A DAY NEEDED SOLD: 11/23/2019 [facility] 90 mcg/actuation 05/26/2019 12:00:00 AM EDT HFA aerosol inha ler 25 INHALE TWO PUFFS BY MOUTH FOUR TIMES A DAY NEEDED INHALE TWO PUFFS BY MOUTH FOUR TIMES A DAY NEEDED SOLD: 08/23/2019 [facility] 90 mcg/actuation 05/26/2019 12:00:00 AM EDT HFA aerosol inha ler 25 INHALE TWO PUFFS BY MOUTH FOUR TIMES A DAY NEEDED INHALE TWO PUFFS BY MOUTH FOUR TIMES A DAY NEEDED SOLD: 06/05/2019 [facility] 200 mg 01/05/2019 12:00:00 AM EST capsule 135 TAKE ONE CAPSULE BY MOUTH EVERY OTHER DAY ALTERNATING WITH 2 CAPS EVERY OTHER DAY TAKE ONE CAPSULE BY MOUTH EVERY OTHER DAY ALTERNATING WITH 2 CAPS EVERY OTHER DAY SOLD: 11/23/2019 [facility] 200 mg 01/05/2019 12:00:00 AM EST capsule 135 TAKE ONE CAPSULE BY MOUTH EVERY OTHER DAY ALTERNATING WITH 2 CAPS EVERY OTHER DAY TAKE ONE CAPSULE BY MOUTH EVERY OTHER DAY ALTERNATING WITH 2 CAPS EVERY OTHER DAY SOLD: 08/23/2019 [facility] 200 mg 01/05/2019 12:00:00 AM EST capsule 135 TAKE ONE CAPSULE BY MOUTH EVERY OTHER DAY ALTERNATING WITH 2 CAPS EVERY OTHER DAY TAKE ONE CAPSULE BY MOUTH EVERY OTHER DAY ALTERNATING WITH 2 CAPS EVERY OTHER DAY SOLD: 05/14/2019 [facility] 2.5 mcg/actuation 08/08/2018 12:00:00 AM EDT mist 12 INHALE TWO PUFFS BY MOUTH EVERY DAY INHALE TWO PUFFS BY MOUTH EVERY DAY SOLD: 02/20/2019 [facility] 2.5 mcg/actuation 08/08/2018 12:00:00 AM EDT mist 12 INHALE TWO PUFFS BY MOUTH EVERY DAY INHALE TWO PUFFS BY MOUTH EVERY DAY SOLD: 06/10/2019 [facility] Insurance Providers Payer name Policy type / Coverage type Policy ID Covered green party ID Covered green party's relationship to starkey Policy Starkey Plan Information BCBS EMPIRE NITISH DIV [id number] SP [id number] [employer] [id number] SP [id number] BCBS EMPIRE NITISH DIV [id number] SP [id number] [employer] [id number] SP [id number] BCBS EMPIRE NITISH DIV [id number] SP [id number] [employer] [id number] SP [id number] [employer] O [id number] S [id number] EXCELLUS BCBS B [id number] S [id number] BCBS EMPIRE NITISH DIV [id number] SP [id number] BCBS EMPIRE NITISH DIV [id number] SP [id number] STATE INSURANCE FUND [id number] SP [id number] STATE INSURANCE FUND [id number] SP [id number] SELF PAY ONLY [employer] Commercial [id number] Self [id number] [employer] Commercial [id number] Self [id number] [employer] Commercial [id number] Self [id number] [facility] Insurance Fund Workers Compensation Self [employer] Health Maintenance Organization (HMO) Self STATE INSURANCE FUND [id number] SP [id number] BCBS EMPIRE NITISH DIV [id number] SP [id number] [facility] [id number] SP [id number] STATE INSURANCE FUND UNAVAILABLE UNAVAILABLE EMPIRE PLAN [facility] U [id number] Self [id number] EMPIRE ([facility]) P [id number] S [id number] Medicaid [place] Medigap Part B Family Dependent [facility] Health Maintenance Organization (HMO) Self Problems, Conditions, and Diagnoses Code Display Name Description Problem Type Effective Dates Data Source(s) M79.18 [id number] Myalgia, other site Problem 03/24/2019 12:00 :00 AM EST eCW1 ([facility]) M79.18 [id number] Myalgia, other site Problem 03/24/2019 12:00 :00 AM EST eCW1 ([facility]) Surgeries/Procedures Procedure Description Date Indications Data Source(s) INJECT TRIGGER POINTS 3/> 06/28/2019 12:00:00 AM EDT eCW1 ([facility]) PHYSICIAN TELEPHONE EVALUATION 5-10 MIN 05/25/2019 12: 00:00 AM EDT eCW1 ([facility]) ESTABILISHED PATIENT [facility] CHARGE 020 12:00:00 AM EDT eCW1 ([facility]) Results ID Date Data Source [id number] 04/12/2020 09:40:00 AM EST [facility] Name Value Range Interpretation Code Description Data Jaclyn rce(s) Supporting Document(s) SARS coronavirus 2 RNA Not Detected [facility] [place] This lab was ordered by [facility] and reported by [facility]. ID Date Data Source [id number] 06/25/2019 10:00:00 AM EDT [facility] Name Value Range Interpretation Code Description Data Jaclyn rce(s) Supporting Document(s) SARS CORONAVIRUS 2 RNA [facility] This lab was ordered by [facility] and reported by [facility]. Procedure Social History Code Duration Value Status Description Data Source(s ) Smoking 02/23/2020 12:00:00 AM EST Former Smoker completed Former Smoker eCW1 ([facility]) Smoking 01/24/2020 12:00:00 AM EST Former Smoker completed Former Smoker eCW1 ([facility]) Smoking 01/24/2020 12:00:00 AM EST Former Smoker completed Former Smoker eCW1 ([facility]) Smoking 01/24/2020 12:00:00 AM EST Former Smoker completed Former Smoker eCW1 ([facility]) Smoking 12/03/2019 12:00:00 AM EDT Former Smoker completed Former Smoker eCW1 ([facility]) Smoking 08/06/2019 12:00:00 AM EDT Former Smoker completed Former Smoker eCW1 ([facility]) Smoking 07/28/2019 12:00:00 AM EDT Former Smoker completed Former Smoker eCW1 ([facility]) Vital Signs ID Date Data Source UNK Name Value Range Interpretation Code Description Data Source(s) Diastolic blood pressure 78 mm[Hg] 78 mm[Hg] eCW1 ([facility]) Systolic blood pressure 132 mm[Hg] 132 mm[Hg] e CW1 ([facility]) Body temperature 96.4 [degF] 96.4 [degF] eCW1 ( [facility]) Respiratory rate 18 /min 18 /min eCW1 ([facility]) Heart rate 81 /min 81 /min eCW1 ([facility]) Body mass index (BMI) [Ratio] 30.66 kg/m2 30.66 kg/m2 W1 ([facility]) Body height 66 [in_i] 66 [in_i] eCW1 ([facility]) Body weight 190 [lb_av] 190 [lb_av] eCW1 ([facility]) Body surface area Derived from formula 1.94 m2 1.94 m2 MEDENT ([facility], ) Body weight 84.823 kg 84.823 kg MEDENT ([facility], ) [place] body weight 142 [lb_av] 142 [lb_av] MEDEN T ([facility], ) Body mass index (BMI) [Ratio] 30.2 kg/m2 30.2 k g/m2 MEDENT ([facility], ) Body weight 187.00 [lb_av] 187.00 [lb_av] MEDEN T ([facility], ) Body height 66 [in_i] 66 [in_i] MEDENT ([facility], ) 5'6" Diastolic blood pressure 84 mm[Hg] 84 mm[Hg] MEDENT ([facility], ) Systolic blood pressure 118 mm[Hg] 118 mm[Hg] M EDENT ([facility], ) Diastolic blood pressure 82 mm[Hg] 82 mm[Hg] eCW1 ([facility]) Systolic blood pressure 148 mm[Hg] 148 mm[Hg] e CW1 ([facility]) Body temperature 97.2 [degF] 97.2 [degF] eCW1 ( [facility]) Respiratory rate 18 /min 18 /min eCW1 ([facility]) Heart rate 94 /min 94 /min eCW1 ([facility]) Body mass index (BMI) [Ratio] 30.02 kg/m2 30.02 kg/m2 eCW1 ([facility]) Body height 66 [in_i] 66 [in_i] eCW1 ([facility]) Body weight 186 [lb_av] 186 [lb_av] eCW1 ([facility]) Diastolic blood pressure 80 mm[Hg] 80 mm[Hg] eCW1 ([facility]) Systolic blood pressure 140 mm[Hg] 140 mm[Hg] e CW1 ([facility]) Body temperature 97.5 [degF] 97.5 [degF] eCW1 ( [facility]) Respiratory rate 20 /min 20 /min eCW1 ([facility]) Heart rate 86 /min 86 /min eCW1 ([facility]) Body mass index (BMI) [Ratio] 29.86 kg/m2 29.86 kg/m2 W1 ([facility]) Body height 66 [in_i] 66 [in_i] eCW1 ([facility]) Body weight 185 [lb_av] 185 [lb_av] eCW1 ([facility]) Diastolic blood pressure 82 mm[Hg] 82 mm[Hg] eCW1 ([facility]) Systolic blood pressure 154 mm[Hg] 154 mm[Hg] e CW1 ([facility]) Body temperature 97.2 [degF] 97.2 [degF] eCW1 ( [facility]) Respiratory rate 18 /min 18 /min eCW1 ([facility]) Heart rate 72 /min 72 /min eCW1 ([facility]) Body mass index (BMI) [Ratio] 29.47 kg/m2 29.47 kg/m2 eCW1 ([facility]) Body height 66 [in_i] 66 [in_i] eCW1 ([facility]) Body weight 182.6 [lb_av] 182.6 [lb_av] eCW1 ([facility]) Diastolic blood pressure 90 mm[Hg] 90 mm[Hg] eCW1 ([facility]) Systolic blood pressure 142 mm[Hg] 142 mm[Hg] e CW1 ([facility]) Body temperature 97.6 [degF] 97.6 [degF] eCW1 ( [facility]) Respiratory rate 18 /min 18 /min eCW1 ([facility]) Heart rate 87 /min 87 /min eCW1 ([facility]) Body mass index (BMI) [Ratio] 29.53 kg/m2 29.53 kg/m2 eCW1 ([facility]) Body height 66 [in_i] 66 [in_i] eCW1 ([facility]) Body weight 183 [lb_av] 183 [lb_av] eCW1 ([facility]) Diastolic blood pressure 90 mm[Hg] 90 mm[Hg] eCW1 ([facility]) Systolic blood pressure 140 mm[Hg] 140 mm[Hg] e CW1 ([facility]) Body temperature 97.5 [degF] 97.5 [degF] eCW1 ( [facility]) Respiratory rate 18 /min 18 /min eCW1 ([facility]) Heart rate 95 /min 95 /min eCW1 ([facility]) Body mass index (BMI) [Ratio] 29.34 kg/m2 29.34 kg/m2 eCW1 ([facility]) Body height 66 [in_us] 66 [in_us] eCW1 ([facility]) Body weight Measured 181.8 [lb_av] 181.8 [lb_av ] eCW1 ([facility]) Diastolic blood pressure 79 mm[Hg] 79 mm[Hg] eCW1 ([facility]) Systolic blood pressure 135 mm[Hg] 135 mm[Hg] e CW1 ([facility]) Body temperature 97.0 [degF] 97.0 [degF] eCW1 ( [facility]) Respiratory rate 18 /min 18 /min eCW1 ([facility]) Heart rate 81 /min 81 /min eCW1 ([facility]) Body mass index (BMI) [Ratio] 29.53 kg/m2 29.53 kg/m2 eCW1 ([facility]) Body height 66 [in_us] 66 [in_us] eCW1 ([facility]) Body weight Measured 183.0 [lb_av] 183.0 [lb_av ] eCW1 ([facility]) Diastolic blood pressure 90 mm[Hg] 90 mm[Hg] eCW1 ([facility]) Systolic blood pressure 152 mm[Hg] 152 mm[Hg] e CW1 ([facility]) Body temperature 97.3 [degF] 97.3 [degF] eCW1 ( [facility]) Respiratory rate 18 /min 18 /min eCW1 ([facility]) Heart rate 95 /min 95 /min eCW1 ([facility]) Body mass index (BMI) [Ratio] 29.66 kg/m2 29.66 kg/m2 eCW1 ([facility]) Body height 66 [in_us] 66 [in_us] eCW1 ([facility]) Body weight Measured 183.8 [lb_av] 183.8 [lb_av ] eCW1 ([facility]) Diastolic blood pressure 80 mm[Hg] 80 mm[Hg] eCW1 ([facility]) Systolic blood pressure 140 mm[Hg] 140 mm[Hg] e CW1 ([facility]) Body mass index (BMI) [Ratio] 29.53 kg/m2 29.53 kg/m2 eCW1 ([facility]) Body height 66 [in_us] 66 [in_us] eCW1 ([facility]) Body weight Measured 183 [lb_av] 183 [lb_av] eC W1 ([facility]) Diastolic blood pressure 79 mm[Hg] 79 mm[Hg] eCW1 ([facility]) Systolic blood pressure 138 mm[Hg] 138 mm[Hg] e CW1 ([facility]) Body temperature 97.4 [degF] 97.4 [degF] eCW1 ( [facility]) Respiratory rate 18 /min 18 /min eCW1 ([facility]) Heart rate 84 /min 84 /min eCW1 ([facility]) Body mass index (BMI) [Ratio] 29.66 kg/m2 29.66 kg/m2 eCW1 ([facility]) Body height 66 [in_us] 66 [in_us] eCW1 ([facility]) Body weight Measured 183.8 [lb_av] 183.8 [lb_av ] eCW1 ([facility]) Diastolic blood pressure 86 mm[Hg] 86 mm[Hg] eCW1 ([facility]) Systolic blood pressure 130 mm[Hg] 130 mm[Hg] e CW1 ([facility]) Body temperature 98.4 [degF] 98.4 [degF] eCW1 ( [facility]) Respiratory rate 18 /min 18 /min eCW1 ([facility]) Heart rate 90 /min 90 /min eCW1 ([facility]) Body mass index (BMI) [Ratio] 28.73 kg/m2 28.73 kg/m2 W1 ([facility]) Body height 66 [in_us] 66 [in_us] eCW1 ([facility]) Body weight Measured 178 [lb_av] 178 [lb_av] eC W1 ([facility]) Diastolic blood pressure 87 mm[Hg] 87 mm[Hg] eCW1 ([facility]) Systolic blood pressure 134 mm[Hg] 134 mm[Hg] e CW1 ([facility]) Body temperature 97.0 [degF] 97.0 [degF] eCW1 ( [facility]) Respiratory rate 18 /min 18 /min eCW1 ([facility]) Heart rate 74 /min 74 /min eCW1 ([facility]) Body mass index (BMI) [Ratio] 29.37 kg/m2 29.37 kg/m2 eCW1 ([facility]) Body height 66 [in_us] 66 [in_us] eCW1 ([facility]) Body weight Measured 182 [lb_av] 182 [lb_av] eC W1 ([facility]) Patient Treatment Plan of Care Planned Activity Planned Date Details Description Data Source (s) Trelegy Ellipta 100-62.5-25 MCG/INH 01/24/2020 12:00:00 AM EST eCW1 ([facility]) Trelegy Ellipta 100-62.5-25 MCG/INH 01/24/2020 12:00:00 AM EST eCW1 ([facility]) Trelegy Ellipta 100-62.5-25 MCG/INH 01/24/2020 12:00:00 AM EST eCW1 ([facility])
--- OUTSIDE RECORDS SUMMARY | 2020-04-17 07:27 | CCD | Continuity of Care Document ---
Author Author [facility] Organization Unknown Address [address], [address] [place] [address] Phone [phone] Care Team Providers Care Ice Sculptor Name Role Phone Abel Muller M.D. AUTM [phone] AUTM Unavailable Problems Active Problems Provider Date Essential hypertension Kimmy Shah M.D. Onset: 04/03/2015 Digestive symptom Isaiah Hernandez MD Onset: 06/09/2015 Internal hemorrhoids without complication Isaiah Hernandez MD Onset: 06/09/2015 Screening for malignant neoplasm of colon Isaiah Hernandez MD Onset: 06/09/2015 Pre-surgery evaluation Isaiah Hernandez MD Onset: 06/09/2015 Carpal tunnel syndrome Kimmy Shah M.D. Onset: 07/31/2015 Cervico-occipital neuralgia Kimmy Shah M.D. Onset: 07/30 Cervical spondylosis Kimmy Shah M.D. Onset: 07/31/2015 Solitary sacroiliitis Kimmy Shah M.D. Onset: 07/31/2015 Carpal tunnel syndrome Kimmy Shah M.D. Onset: 07/31/2015 Lesion of ulnar nerve Kimmy Shah M.D. Onset: 07/31/2015 Lumbar spondylosis with myelopathy Kimmy Shah M.D. Onset : 07/31/2015 Removal of suture Kimmy Shah M.D. Onset: 10/10/2015 Social History Type Date Description Comments Sex Unknown ETOH Use Never used alcohol Tobacco Use Start: Unknown End: Unknown Patient is a former smoker quit 2008 Recreational Drug Use Denies Drug Use Allergies, Adverse Reactions, Alerts Description No Known Drug Allergies Medications Active Medications SIG Qnty Indications Ordering Provide r Date Suprep Bowel Prep Kit 17.5-3.13-1.6GM/177ML Solution take per doctor's bowel prep instructions. 354ml Z12.1 1 Isaiah Hernandez MD 02/11/2020 Milk Of Magnesia 1200mg/15ML Suspe nsion take 45 milliliters by mouth as directed on colonoscopy prep sheet. Z12.11 Isaiah Hernandez MD 02/11/2020 Proventil HFA 108(90Base) mcg/ac A erosol 2 puffs q4h prn 1units Unknown Celebrex 200mg Capsules Daily Unknown Lisinopril 40mg Tablets 1 tab by mouth every day Unknown Aspirin 81mg Tablets 1 by mouth every day Unknown Vitamin D 25mcg (1000 Ut) Tablets take 1 tab by mouth daily Unknown Trelegy Ellipta 100- 62.5-25mcg/Inh Aerosol one inhalation daily Unknown 000 Immunizations Description No Information Available Vital Signs Date Vital Result Comment 02/11/2020 2:39pm BP Systolic 118 mmHg BP Diastolic 84 mmHg Height 66 inches 5'6" Weight 187.00 lb BMI (Body Mass Index) 30.2 kg/m2 [place] Body Weight 142 lb Weight 84.823 kg BSA (Body Surface Area) 1.94 m2 10/10/2015 8:55am BP Systolic 140 mmHg BP Diastolic 88 mmHg Heart Rate 52 /min Body Temperature 97.8 F Height 66 inches 5'6" Weight 178.00 lb BMI (Body Mass Index) 28.7 kg/m2 [place] Body Weight 142 lb Weight 80.741 kg BSA (Body Surface Area) 1.90 m2 Results Description No Information Available Procedures Description No Information Available Medical Devices Description No Information Available Encounters Description No Information Available Assessments Date Code Description Provider 02/11/2020 Z12.11 Encounter for screening for sly gnant neoplasm of colon RICH Lopez Plan of Treatment 02/11/2020 - RICH Lopez* Z12.11 Encounter for screening for malignant neoplasm of colon * * New Medication:* Suprep Bowel Prep Kit 17.5-3.13-1.6 GM/177ML * Milk Of Magnesia 1200 mg/15ML * New Orders:* Colonoscopy, Ordered: 02/11/20 * Comments:* Will arrange for colonoscopy. Reviewed risks and benefits of the procedure, as well as other options, with the patient. Bowel prep procedure was discussed with patient, as well as risks and side effects associated with the bowel prep. Patient verbalized understanding of all of the above and is in agreement to proceed. Patient will seek medical attention for any acute changes. Will monitor. * Follow up:* As scheduled, sooner if needed. Functional Status Description No Information Available Mental Status Description No Information Available Referrals Description No Information Available
--- OUTSIDE RECORDS SUMMARY | 2020-04-17 07:27 | CCD ---
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 Name Role Phone Divyasilviano Abel Unavailable PROBLEMS Type Condition ICD9-CM Code MEJ11-HY Code Onset Dates Condition S tatus SNOMED Code Notes Problem Enlarged prostate without lower urinary tract symptoms N40.0 Active 919600859 Problem Chronic obstructive pulmonary disease, unspecified J44.9 Active 86871475 Problem Mixed hyperlipidemia E78.2 Active 960056374 Problem Myalgia M79.10 Active 47406347 Problem Encounter for screening for malignant neoplasm of prostate Z12.5 Active 524652773 Problem Myalgia, other site M79.18 Active 30075931 Problem Essential hypertension I10 Active 82386397 Problem Other intervertebral disc degeneration, 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 He will continue working without restrictions, but I encouraged him to call me immediately if his pain should get out of hand again Problem Spondylosis without myelopathy or radiculopathy, cervical region M47.812 Active 101282418 ALLERGIES No Known Allergies ENCOUNTERS from 1960 to 2020-02-24 Encounter Location Date Provider Diagnosis [facility] [address] [place] [address] Jan, Luis Enrique Muller Essential hypertension I10 ; Chronic obstructive pulmonary disease, unspecified J44.9 ; Encounter for screening for malignant neoplasm of prostate Z12.5 and Mixed hyperlipidemia E78.2 IMMUNIZATIONS Vaccine Route Administration Date Status Influenza (6mo & up) Fluzone Unknown Jan 24, 2014 Adm inistered SOCIAL HISTORY Tobacco Use: Social History Observation Description Date Details (start date - stop date) Former Smoker Sex Assigned At : Social History Observation Description Sex Assigned At Unknown Education: Question Answer Notes Level of Education: High School Language: Question Answer Notes Languages spoken: Scottish Muslim: Question Answer Notes Muslim No roman catholic beliefs that would impact health care. Domestic [...] REASON FOR REFERRAL No Information VITAL SIGNS Weight 190 lbs Jan, Height 66 in Jan, BMI 30.66 kg/m2 Jan, Heart Rate 81 /min Jan, Respiratory Rate 18 /min Jan, Temperature 96.4 degrees Fahrenheit Jan, Oximetry 98 Jan, Blood pressure systolic 132 mm Hg Jan, Blood pressure diastolic 78 mm Hg Jan, MEDICATIONS Medication SIG (Take, Route, Frequency, Duration) Notes Start Da te End Date Status Celebrex 200 MG 1 capsule Orally 1 cap daily alt with 2 capsules daily for 90 days Nov, Active Aspir-Low 81 MG 1 tablet Orally Once a day for 30 day(s) Active Lisinopril 40 MG 1 tablet Orally Once a day Active Trelegy Ellipta 100-62.5-25 MCG/INH 1 puff Inhalation Once a day for 90 day(s) Dec, Active ProAir HFA 108 (90 Base) MCG/ACT 2 puffs as needed Inh alation four times daily as needed for 90 day(s) Feb, Active PROCEDURES No Information RESULTS No Results REASON FOR VISIT 4 week MEDICAL (GENERAL) HISTORY Type Description Date Medical [...] 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 Medical History echo 02/12: EF 70%, nl echo Surgical History colonoscopy--Dr Ellis Surgical History appendectomy as child Surgical History bowel surgery as child Surgical History colonoscopy (nl) 04/06 Hospitalization History Surgery Related Goals Section No Information Health Concerns No Information MEDICAL EQUIPMENT No Information MENTAL STATUS No Information FUNCTIONAL STATUS No Information ASSESSMENTS Encounter Date Diagnosis Assessment Notes Treatment Notes Treatm ent Clinical Notes Jan, Essential hypertension (ICD-10 - I10) Jan, Chronic obstructive pulmonar y disease, unspecified (ICD-10 - J44.9) Jan, Encounter for screening for malignant neoplasm of prostate (ICD-10 - Z12.5) Jan, Mixed hyperlipidemia (ICD-10 - E78.2) PLAN OF TREATMENT Future Test Test Name Order Date Comprehensive Metabolic Profile (CMP) 20200823 LIPID PANEL (CARDIAC RISK) 20200823 CBC - Complete Blood Count 20200823 PSA SCREENING 20200823 Next Appt Details 6 Months Reason: Provider Name:Kelle Coffman, 2020-05-0 9 08:00:00 AM, [address] [place], [address], Insurance Providers Payer Name Payer Address Payer Phone Insured Name Patient Relati onship to Insured Coverage Start Date Coverage End Date [facility] [address] [facility] [id number] JENNA ISAAC self
--- OUTSIDE RECORDS SUMMARY | 2020-04-17 07:27 | CCD ---
Author Author [facility] Organization [facility] Address Unknown Phone Unavailable Care Team Providers Care Supervisor Public Message Service Name Role Phone Dulce MariaakinAbel Unavailable PROBLEMS Type Condition ICD9-CM Code FXR87-GC Code Onset Dates Condition S tatus SNOMED Code Notes Problem Enlarged prostate without lower urinary tract symptoms N40.0 Active 859238069 Problem Chronic obstructive pulmonary disease, unspecified J44.9 Active 20764131 Problem Mixed hyperlipidemia E78.2 Active 914436681 Problem Myalgia M79.10 Active 77797788 Problem Encounter for screening for malignant neoplasm of prostate Z12.5 Active 559766229 Problem Myalgia, other site M79.18 Active 53660541 Problem Essential hypertension I10 Active 62435430 Problem Other intervertebral disc degeneration, 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 He will continue working without restrictions, but I encouraged him to call me immediately if his pain should get out of hand again Problem Spondylosis without myelopathy or radiculopathy, cervical region M47.812 Active 767360414 ALLERGIES No Known Allergies ENCOUNTERS from 1960 to 2020-02-15 Encounter Location Date Provider Diagnosis [facility] [address] [place] [address] 08 Jan, 2020 Luis Enrique Muller IMMUNIZATIONS Vaccine Route Administration [...] School Language: Question Answer Notes Languages spoken: Kiswahili Taoist: Question Answer Notes Taoist No amish beliefs that would impact health care. Domestic [...] Details Provider Name:Abel Muller, 2020-01 08:15:00 AM, [address], [place], [address], Provider Name:Kelle Coffman, 2020-05-0 9 08:00:00 AM, [address] [place], [address], Insurance Providers Payer Name Payer Address Payer Phone Insured Name Patient Relati onship to Insured Coverage Start Date Coverage End Date [facility] [address] [facility] [id number] JENNA ISAAC self
--- OUTSIDE RECORDS SUMMARY | 2020-04-17 07:27 | CCD ---
Author Author [facility] Organization [facility] Address Unknown Phone Unavailable Care Team Providers Care Geomagnetist Name Role Phone Divyasilviano Abel Unavailable PROBLEMS Type Condition ICD9-CM Code RWS38-VQ Code Onset Dates Condition S tatus SNOMED Code Notes Problem Enlarged prostate without lower urinary tract symptoms N40.0 Active 097556673 Problem Chronic obstructive pulmonary disease, unspecified J44.9 Active 90237406 Problem Mixed hyperlipidemia E78.2 Active 467087851 Problem Myalgia M79.10 Active 88236542 Problem Encounter for screening for malignant neoplasm of prostate Z12.5 Active 070372270 Problem Myalgia, other site M79.18 Active 42616986 Problem Essential hypertension I10 Active 75720006 Problem Other intervertebral disc degeneration, 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 He will continue working without restrictions, but I encouraged him to call me immediately if his pain should get out of hand again Problem Spondylosis without myelopathy or radiculopathy, cervical region M47.812 Active 923797140 ALLERGIES No Known Allergies ENCOUNTERS from 1960 to 2020-01-29 Encounter Location Date Provider Diagnosis [facility] [address] [place] [address] Dec, Luis Enrique Muller Chronic obstructive pulmonary disease, unspecified J44.9 and MILLARD (dyspnea on exertion) R06.00 IMMUNIZATIONS Vaccine Route Administration Date Status Influenza (6mo & up) Fluzone Unknown Jan 24, 2014 Adm inistered SOCIAL HISTORY Tobacco Use: Social History Observation Description Date Details (start date - stop date) Former Smoker Sex Assigned At : Social History Observation Description Sex Assigned At Unknown Education: Question Answer Notes Level of Education: High School Language: Question Answer Notes Languages spoken: Citizen Of [place] Yarsani: Question Answer Notes Yarsani No evangelical beliefs that would impact health care. Domestic [...] FOR REFERRAL No Information VITAL SIGNS Weight 186 lbs Dec, Height 66 in Dec, BMI 30.02 kg/m2 Dec, Heart Rate 94 /min Dec, Respiratory Rate 18 /min Dec, Temperature 97.2 degrees Fahrenheit Dec, Oximetry 95 Dec, Blood pressure systolic 148 mm Hg Dec, Blood pressure diastolic 82 mm Hg Dec, MEDICATIONS Medication SIG (Take, Route, Frequency, Duration) [...] Information RESULTS No Results REASON FOR VISIT worsening COPD MEDICAL (GENERAL) HISTORY Type Description Date Medical [...] Notes Treatment Notes Treatm ent Clinical Notes Dec, Chronic obstructive pulmonar y disease, unspecified (ICD-10 - J44.9) spirometry actually improved c/w 2017. Dec, MILLARD (dyspnea on exertion) (ICD-10 - R06.00) jamir is actually better than expected--? cardiac cause, will check echo PLAN OF TREATMENT Medication Medication Name Sig Start Date Stop Date Trelegy Ellipta 100-62.5-25 MCG/INH 1 puff Inhalation Once a day for 90 day(s) Dec, Treatment Notes Assessment Notes Clinical Notes Chronic obstructive pulmonary disease, unspecified spirometry actually improved c/w 2017. MILLARD (dyspnea on exertion) jamir is actua lly better than expected--? cardiac cause, will check echo Treatment Notes Test Name Order Date Simple Spirometry w/Interpretation 2020-01-29 Future Test Test Name Order Date Echocardiogram [id number] Next Appt Details 4 Weeks Reason: Provider Name:Abel Muller, 2020-01 08:15:00 AM, [address], [place], [address], Provider Name:Kelle Coffman, 2020-05- 9 08:00:00 AM, [address] [place], [address], Insurance Providers Payer Name Payer Address Payer Phone Insured Name Patient Relati onship to Insured Coverage Start Date Coverage End Date [facility] [address] [facility] [id number] JENNA ISAAC self
--- NOTE | 2020-04-17 09:13 | ROOR ---
Patient Name: Dario Camacho Procedure Date: 04/17/2020 8:53 AM Date of : 1960 Age: 60 Room: [facility] Gender: Male Note Status: Finalized Procedure: Colonoscopy Indications: Screening for colorectal malignant neoplasm Providers: Isaiah HERNANDEZ MD Referring MD: Abel Muller MD Requesting Provider: Medicines: Monitored Anesthesia Care Complications: No immediate complications. Procedure: Pre-Anesthesia Assessment: - The heart rate, respiratory rate, oxygen saturations, blood pressure, adequacy of pulmonary ventilation, and response to care were monitored throughout the procedure. The Colonoscope was introduced through the anus and advanced to the terminal ileum, with identification of the appendiceal orifice and IC valve. The colonoscopy was performed without difficulty. The patient tolerated the procedure well. The quality of the bowel preparation was good. Findings: The entire examined colon appeared normal on direct and retroflexion views. Impression: - The entire examined colon is normal on direct and retroflexion views. - No specimens collected. Recommendation: - Repeat colonoscopy in 10 years for screening purposes. Procedure Code(s): --- Professional --- 47628, Colonoscopy, flexible; diagnostic, including collection of specimen(s) by brushing or washing, when performed (separate procedure) Diagnosis Code(s): --- Professional --- Z12.11, Encounter for screening for malignant neoplasm of colon CPT copyright 2019 [employer]. All rights reserved. The codes documented in this report are preliminary and upon egg factory worker review may be revised to meet current compliance requirements. Isaiah Hernandez MD Isaiah HERNANDEZ MD 04/17/2020 9:13:41 AM Electronically signed by Isaiah HERNANDEZ MD Number of Addenda: 0 Note Initiated On: 04/17/2020 8:53 AM Estimated Blood Loss: Estimated blood loss: none.
[2020-04-17 09:34] VITALS: BP 149/78
== END 2020-04-17 09:41 | disposition home or self-care (01) ==
LOC: M OPP 07:22
PROVIDERS: ATTEND Internal Medicine Gastroenterology
DX: Z12.11 Encounter for screening for malignant neoplasm of colon (principal); I10 Essential (primary) hypertension; M19.90 Unspecified osteoarthritis, unspecified site; J44.9 Chronic obstructive pulmonary disease, unspecified; M54.2 Cervicalgia; Z86.14 Personal history of Methicillin resistant Staphylococcus aureus infection; Z79.82 Long term (current) use of aspirin; Z79.51 Long term (current) use of inhaled steroids; Z79.899 Other long term (current) drug therapy; Z83.6 Family history of other diseases of the respiratory system; Z80.41 Family history of malignant neoplasm of ovary; Z80.42 Family history of malignant neoplasm of prostate

== ENCOUNTER → 2022-04-11 | Outpatient (REF) | payer OTHER ==
[~2022-04-11] MED LIST changes: -LIDOCAINE 2% 100MG/5ML SDV (FOR ANES.) As Ordered ONE; -NS 1,000 ML IV ONE; -propofoL 200 MG/20 ML VIAL As Ordered ONE
[2022-04-11 12:31] LABS: BASO # 0.1 10^3/uL (0.0-0.2); BASO % 0.4 % (0.0-1.0); EOS % 0.1 % (0.0-3.0); HEMOGLOBIN 15.8 g/dl (13.5-17.5); LYMPH % 14.3 % (24.0-44.0); MEAN CORPUSCULAR HEMOGLOBIN 28.2 pg (27.0-33.0); MEAN CORPUSCULAR HGB CONC 31.6 g/dl (32.0-36.5); MEAN CORPUSCULAR VOLUME 89.3 fl (80.0-96.0); MONO # 1.4 10^3/uL (0.0-0.8); MONO % 10.4 % (2.0-8.0); NEUTROPHILS # 10.2 10^3/uL (1.5-8.5); NEUTROPHILS % 74.4 % (36.0-66.0); PLATELET COUNT, AUTOMATED 343 10^3/uL (150-450); WHITE BLOOD COUNT 13.7 10^3/uL (4.0-10.0)
[2022-04-11 13:05] LABS: ALBUMIN 3.7 G/DL (3.2-5.2); ALKALINE PHOSPHATASE 80 U/L (46-116); ALT/SGPT 37 U/L (7.0-40); AST/SGOT 23 U/L (<34); BILIRUBIN,TOTAL 0.5 MG/DL (0.3-1.2); BLOOD UREA NITROGEN 30 MG/DL (9-23); CALCIUM LEVEL 10.3 MG/DL (8.3-10.6); CARBON DIOXIDE LEVEL 30 MMOL/L (20-31); CHLORIDE LEVEL 102 MMOL/L (98-107); CHOLESTEROL LEVEL 293 MG/DL (<200); CHOLESTEROL RISK RATIO 2.89 (<5); CREATININE FOR GFR 1.23 MG/DL (0.70-1.30); GLOMERULAR FILTRATION RATE > 60.0 (>49); GLUCOSE, FASTING 123 MG/DL (74-106); HDL CHOLESTEROL 101.2 MG/DL (>40); LDL CHOLESTEROL 166.6 MG/DL (<100); NON-HDL-C 192 MG/DL; POTASSIUM SERUM 4.4 MMOL/L (3.5-5.1); SODIUM LEVEL 141 MMOL/L (136-145); TOTAL PROTEIN 6.9 G/DL (5.7-8.2); TRIGLYCERIDES LEVEL 126 MG/DL (<150)
[2022-04-11 13:36] LABS: HEMOGLOBIN A1c 5.8 % (4.0-6.0)
== END ==
LOC: M SFHCCLAY 08:53
PROVIDERS: ATTEND Physician Assistant
DX: I10 Essential (primary) hypertension (principal); J44.9 Chronic obstructive pulmonary disease, unspecified; N40.0 Benign prostatic hyperplasia without lower urinary tract symptoms; E78.2 Mixed hyperlipidemia

== ENCOUNTER → 2022-04-24 | Outpatient (CLI) | payer BC, OTHER | LOC: M CARPUL 13:38 | PROVIDERS: ATTEND Physician Assistant | DX: J44.9 Chronic obstructive pulmonary disease, unspecified (principal) ==

== ENCOUNTER → 2022-04-25 | Outpatient (CLI) | payer BC, OTHER | LOC: M CLY 08:08 | PROVIDERS: ATTEND Physician Assistant | DX: J44.9 Chronic obstructive pulmonary disease, unspecified (principal) ==

== ENCOUNTER → 2022-05-16 | Outpatient (CLI) | payer BC, OTHER | LOC: M RAD 06:47 | PROVIDERS: ATTEND Physician Assistant | DX: Z12.2 Encounter for screening for malignant neoplasm of respiratory organs (principal); Z87.891 Personal history of nicotine dependence ==

== ENCOUNTER → 2022-12-06 | Outpatient (CLI) | payer BC, OTHER | LOC: M PLAIMG 08:01 | PROVIDERS: ATTEND Physician Assistant | DX: R91.8 Other nonspecific abnormal finding of lung field (principal) ==

== ENCOUNTER → 2023-12-29 | Outpatient (CLI) | payer BC | LOC: M PLAIMG 09:33 | PROVIDERS: ATTEND Physician Assistant | DX: R91.8 Other nonspecific abnormal finding of lung field (principal); J47.9 Bronchiectasis, uncomplicated ==

== ENCOUNTER → 2024-04-14 | Outpatient (CLI) | payer MEDICARE, BC ==
[~2024-04-14] MED LIST changes: -CELE1CAP88 PO; +CELE400C PO
== END ==
LOC: M PLAIMG 10:08
PROVIDERS: ATTEND Physician Assistant
DX: R91.8 Other nonspecific abnormal finding of lung field (principal)